=== PATIENT | female | born 1985 | race Caucasian/White ===

== ENCOUNTER 2017-10-02 11:33 | Emergency (ER) | payer OTHER, MEDICAID, SELFPAY ==
[2017-10-02 11:40] VITALS: BP 155/88; PULSE 87; RESP 20; TEMP 37; O2SAT 98; BMI 37.0
--- NOTE | 2017-10-02 11:45 | ED.ABDPAIN ---
HPI - Abdominal Pain General Chief Complaint: Abdominal Pain Stated Complaint: severe left side cramping Time Seen by Provider: 10/02/17 11:44 Source: patient Mode of arrival: ambulatory Limitations: no limitations History of Present Illness HPI narrative: 32-year-old female here for evaluation of left lower quadrants/ left adnexal pain. Patient states that started approximately 45 min prior to arrival. Has had some nausea but no vomiting. No vaginal bleeding. No urinary symptoms no bowel symptoms. She states she has had ovarian cysts in the past. Does have an IUD in place and has been there for many years. Does have occasional irregular vaginal bleeding but not having that now. states that the pain actually gets a little better when she places pressure over the area. Related Data Previous Rx's Medication Instructions Recorded fluoxetine 80 mg PO QDAY #60 cap 11/25/16 Allergies Allergy/AdvReac Type Severity Reaction Status Date / Time latex [LATEX] Allergy Intermediate Unverified 06/28/17 12:34 NSAIDS (Non-Steroidal Allergy Unknown TEARS MY Unverified 06/28/17 12:34 Anti-Inflamma STOMACH UP [NSAIDS (NON-STEROIDAL ANTI-INFLAMMA] Review of Systems Constitutional Denies chills, Denies fatigue and Denies fever(s) Cardiovascular Denies chest pain and Denies dyspnea Respiratory Denies dyspnea Gastrointestinal Gastrointestinal: Reports abdominal pain, Denies melena, Denies diarrhea, Reports nausea and Denies vomiting Genitourinary Denies dysuria, Denies urinary urgency and Denies vaginal discharge Musculoskeletal Denies myalgias and Denies arthralgias Integumentary/Breasts Denies lesions and Denies rash Neurologic Denies confusion Psychiatric Denies confusion Endocrine Denies fatigue Hematologic/Lymphatic Denies easy bleeding and Denies easy bruising [facility] Surgical History Status post delivery Social History Smoking Status: Never smoker Exam Initial Vital Signs Initial Vital Signs: Vital Signs Temperature 98.6 F 10/02/17 11:40 Pulse Rate 87 10/02/17 11:40 Respiratory Rate 20 10/02/17 11:40 Blood Pressure 155/88 H 10/02/17 11:40 Pulse Oximetry 98 10/02/17 11:40 Const General: cooperative, healthy appearing, comfortable, well developed, well groomed and No acute distress Orientation: alert, awake and oriented x3 Resp Effort & Inspection: normal respiratory effort Auscultation: clear to auscultation bilaterally Cardio Rate: regular rate Rhythm: regular rhythm GI Inspection: non-distended Palpation: soft, No firm and tender ( Left lower quadrant) Back/Spine/Pelvis Back: No CVA tenderness Skin Lesions: no lesions Rashes: no rashes Neuro General: alert and oriented x3 Cognition: normal cognition Speech: speech normal Gait: normal gait Extrem General: normal to inspection Psych Appearance: grossly normal and well kempt Course Orders Ordered: ED Orders 10/02/17 11:55 US pelvic complete Stat 10/02/17 11:58 Complete Blood Count AUTO DIFF Stat Comprehensive Metabolic Panel Stat Lipase Stat 10/02/17 13:19 CT kidney ureter bladder (KUB) Stat Discontinued Medications Morphine Sulfate (Morphine) 4 mg IV NOW ONE Stop: 10/02/17 11:56 Last Admin: 10/02/17 12:20 Dose: 4 mg Ondansetron HCl (Zofran) 4 mg IV NOW ONE Stop: 10/02/17 11:56 Last Admin: 10/02/17 12:20 Dose: 4 mg Vital Signs - 8 hr 10/02/17 11:40 10/02/17 13:38 Temperature 98.6 F Pulse Rate 87 82 Respiratory Rate 20 14 Blood Pressure 155/88 H Blood Pressure [Right Arm] 112/83 H Pulse Oximetry 98 98 MDM - Abdominal Pain Lab Data Attestation: I reviewed the patient's lab results. Result diagrams: 10/02/17 11:58 10/02/17 11:58 Lab Results 10/02/17 10/02/17 Range/Units 11:58 11:58 WBC 8.5 (4.5-11.0) X10^3/uL RBC 4.62 (4.0-5.2) X10^6/uL Hgb 13.0 (12.0-16.0) g/dL Hct 39.0 (36-46) % MCV 84.4 (80-100) fL MCH 28.3 (26-34) PG MCHC 33.5 (30-36) % RDW 13.0 (11.6-14.8) % Plt Count 286 (150-400) X10^3/uL Neut % (Auto) 59.2 (50-75) % Lymph % (Auto) 29.4 (25-40) % Emm[place] % (Auto) 9.5 (3-14) % Eos % (Auto) 1.3 L (2-4) % Baso % (Auto) 0.6 (0-2) % Neut # (Auto) 5000 (5484-9868) /uL Sodium 140 (137-145) mmol/L Potassium 4.4 (3.4-5.1) mmol/L Chloride 102 (98-107) mmol/L Carbon Dioxide 30 (22-32) mmol/L BUN 13 (7-17) mg/dL Creatinine 0.90 (0.52-1.04) mg/dL Estimated GFR > 60.0 (>60) mL/min BUN/Creatinine Ratio 14.4 (6-22) Glucose 100 (70-100) mg/dL Calcium 9.4 (8.4-10.2) mg/dL Total Bilirubin 0.2 (0.2-1.3) mg/dL AST 39 H (14-36) IU/L ALT 89 H (9-52) IU/L Alkaline Phosphatase 84 (38-126) U/L Total Protein 7.3 (6.3-8.2) g/dL Albumin 4.4 (3.5-5.0) g/dL Globulin 2.9 (1.7-4.1) g/dL Albumin/Globulin Ratio 1.5 (1.0-2.8) Lipase 87 (23-300) U/L Point of care testing: Point of Care Testing Test Results Negative Urine Dip Bedside Urine Glucose Negative Bedside Urine Bilirubin - Negative Bedside Urine Ketone - Negative Urine Specific [place] 1.015 Bedside Urine Occult Blood +++ Bedside Urine pH 6.0 Bedside Urine Protein - Negative Bedside Urine Urobilinogen - Negative Bedside Urine Nitrite - Negative Bedside Urine Leukocytes - Negative Esterase Imaging Data pelvic ultrasound: Radiologist's impression: PROCEDURE: US PELVIC COMPLETE INDICATIONS: PAIN TECHNIQUE: Real-time scanning was performed of the pelvic organs, with image documentation. Additional endovaginal scanning was necessary due to incomplete visualization of the adnexal and endometrial structures by transabdominal scanning. COMPARISON: [facility], US, PELVIC COMPLETE, 03/23/2015, 12:36. FINDINGS: Transabdominal scanning: Limited scanning through the kidneys shows no hydronephrosis. The kidneys measure 11.7 CM right and 11.9 CM left. No pathologic free abdominal or pelvic fluid. Endovaginal scanning: Uterus: Uterus is normal in size at 3.7 x 4.9 x 7.4 cm. The endometrium measures 3.5 mm in combined thickness. An IUD is present in the lower uterine segment. There is a persistent 5 mm linear hyperechoic focus in the posterior submucosal myometrium that is of concern for possible embedded IUD fragment. Ovaries: Ovaries appear normal measuring 20 x 22 x 34 mm right and 18 x 20 x 27 mm left. IMPRESSION: 1. There is suspicion of a broken IUD fragment in the posterior submucosal myometrium. Pelvic x-ray may be helpful for verification. CT of the pelvis should be deferred because of radiation exposure unless surgically necessary. 2. Main portion of the IUD is in the lower uterine segment of the endometrium 3. Normal ovaries. Dictated by: Mike Shrestha M.D. on 10/02/2017 at 12:59 Approved by: Mike Shrestha M.D. on 10/02/2017 at 13:06 CT scan abdomen pelvis: Radiologist's impression: PROCEDURE: CT KIDNEY URETER BLADDER (KUB) INDICATIONS: Possible broken IUD left-sided abdominal pain TECHNIQUE: Noncontrast 5 mm thick sections acquired from the diaphragms to the symphysis. 5 mm thick coronal and sagittal reformats were then performed. For radiation dose reduction, the following was used: automated exposure control, adjustment of mA and/or kV according to patient size. COMPARISON: [facility], , PELVIC COMPLETE, 10/02/2017, 12:23. FINDINGS: Image quality: Excellent. Lung bases: Lung bases are clear. Heart size is normal. Urinary system: Both kidneys are normal in size. No kidney stones. No hydronephrosis or perinephric fat stranding. Both ureters appear non-dilated throughout their expected courses. Bladder wall thickness is normal; no calcified bladder stones. Other solid organs: Liver is normal in size, mildly hypoattenuating except for sparing around the gallbladder fossa. Gallbladder appears normal. Pancreas is normal in contours. Spleen is normal in size. No adrenal nodules. Peritoneum and bowel: Unenhanced bowel loops demonstrate normal wall thickness and caliber. Normal appendix. No free fluid or air. Nodes and vessels: No retroperitoneal or mesenteric adenopathy by size criteria. Aorta and inferior vena cava are normal in caliber. Abdominal wall: A 2.5 cm fat filled. Inguinal hernia is superimposed on rectus diastasis. Pelvis: No free pelvic fluid. No inguinal hernias or adenopathy. Uterus and ovaries appear normal. There is an IUD in the lower uterine segment of the endometrial cavity. Relative to the prior pelvic ultrasound, the IUD appears to be intact. There is no radiopaque foreign body seen elsewhere in the uterus. Calcified injection site in the right buttocks. Bones: No suspicious bony lesions. No vertebral body compression fractures. IMPRESSION: 1. The IUD is intact but is low in the uterus. 2. No nephrolithiasis or hydronephrosis. 3. No evidence of inflammatory bowel disease or obstruction. 4. Mild hepatic steatosis with sparing around the gallbladder fossa. 5. Fat filled umbilical hernia with diastases of the rectus abdominis. Dictated by: Mike Shrestha M.D. on 10/02/2017 at 14:03 Approved by: Mike Shrestha M.D. on 10/02/2017 at 14:13 [facility] Narrative Medical decision making narrative: patient with a relatively benign abdominal exam. Ovaries unremarkable. CT scan shows that the IUD is intact. No other surgical abnormalities found on the CT scan. Patient does state that she has a distant diagnosis of endometriosis however has not had any issues with it. We did discuss pain control to include Tylenol and Motrin. We discussed return precautions. She expressed understanding and agreement with plan. Discharge Plan Departure Patient Disposition: Home, Self-Care Clinical Impression: Abdominal pain Instructions: DI for Abdominal Pain-Adult Activity Restrictions/Additional Instructions: recommend that you continue all of your medications as directed. Keep all of your scheduled medical appointments. Return to the emergency department for any new or worsening symptoms Prescriptions: No Action fluoxetine 40 MG capsule 80 mg PO QDAY Qty: 60 RF: 0
--- NOTE | 2017-10-02 11:55 | DI.US.S_ITS ---
PROCEDURE: US PELVIC COMPLETE INDICATIONS: PAIN TECHNIQUE: Real-time scanning was performed of the pelvic organs, with image documentation. Additional endovaginal scanning was necessary due to incomplete visualization of the adnexal and endometrial structures by transabdominal scanning. COMPARISON: [facility], , PELVIC COMPLETE, 03/23/2015, 12:36. FINDINGS: Transabdominal scanning: Limited scanning through the kidneys shows no hydronephrosis. The kidneys measure 11.7 CM right and 11.9 CM left. No pathologic free abdominal or pelvic fluid. Endovaginal scanning: Uterus: Uterus is normal in size at 3.7 x 4.9 x 7.4 cm. The endometrium measures 3.5 mm in combined thickness. An IUD is present in the lower uterine segment. There is a persistent 5 mm linear hyperechoic focus in the posterior submucosal myometrium that is of concern for possible embedded IUD fragment. Ovaries: Ovaries appear normal measuring 20 x 22 x 34 mm right and 18 x 20 x 27 mm left. IMPRESSION: 1. There is suspicion of a broken IUD fragment in the posterior submucosal myometrium. Pelvic x-ray may be helpful for verification. CT of the pelvis should be deferred because of radiation exposure unless surgically necessary. 2. Main portion of the IUD is in the lower uterine segment of the endometrium 3. Normal ovaries. Dictated by: Mike Shrestha M.D. on 10/02/2017 at 12:59 Approved by: Mike Shrestha M.D. on 10/02/2017 at 13:06
[2017-10-02 12:08] LABS: Add Manual Diff / Slide Review NO; Basophils Percent Auto 0.6 % (0-2); Eosinophils Percent Auto 1.3 % (2-4); Lymphocytes Percent Auto 29.4 % (25-40); Mean Corpuscular HGB Conc 33.5 % (30-36); Mean Corpuscular Hemoglobin 28.3 PG (26-34); Mean Corpuscular Volume 84.4 fL (80-100); Monocytes Percent Auto 9.5 % (3-14); Neutrophils Absolute Auto 5000 /uL (3000-5900); Neutrophils Percent Auto 59.2 % (50-75); Platelet Count 286 X10^3/uL (150-400); Red Blood Cell Count 4.62 X10^6/uL (4.0-5.2); White Blood Cell Count 8.5 X10^3/uL (4.5-11.0)
[2017-10-02] MEDS: MORPHINE 4 MG/ML INJ IV (12:20)
[2017-10-02] MEDS: ONDANSETRON 4 MG/2 ML INJ IV (12:20)
[2017-10-02 12:22] LABS: Alanine Aminotransferase 89 IU/L (9-52); Albumin 4.4 g/dL (3.5-5.0); Albumin Globulin Ratio 1.5 (1.0-2.8); Alkaline Phosphatase 84 U/L (38-126); Aspartate Aminotransferase 39 IU/L (14-36); BUN Creatinine Ratio 14.4 (6-22); Bilirubin Total 0.2 mg/dL (0.2-1.3); Blood Urea Nitrogen 13 mg/dL (7-17); Calcium 9.4 mg/dL (8.4-10.2); Carbon Dioxide 30 mmol/L (22-32); Chloride 102 mmol/L (98-107); Estimated Glomerular Filt Rate > 60.0 mL/min (>60); Globulin 2.9 g/dL (1.7-4.1); Glucose 100 mg/dL (70-100); HEMOLYSIS < 15 (0-50); Lipase 87 U/L (23-300); Potassium 4.4 mmol/L (3.4-5.1); Sodium 140 mmol/L (137-145); Total Protein 7.3 g/dL (6.3-8.2)
--- NOTE | 2017-10-02 13:19 | DI.CT.S_ITS ---
PROCEDURE: CT KIDNEY URETER BLADDER (KUB) INDICATIONS: Possible broken IUD left-sided abdominal pain TECHNIQUE: Noncontrast 5 mm thick sections acquired from the diaphragms to the symphysis. 5 mm thick coronal and sagittal reformats were then performed. For radiation dose reduction, the following was used: automated exposure control, adjustment of mA and/or kV according to patient size. COMPARISON: [facility], , PELVIC COMPLETE, 10/02/2017, 12:23. FINDINGS: Image quality: Excellent. Lung bases: Lung bases are clear. Heart size is normal. Urinary system: Both kidneys are normal in size. No kidney stones. No hydronephrosis or perinephric fat stranding. Both ureters appear non-dilated throughout their expected courses. Bladder wall thickness is normal; no calcified bladder stones. Other solid organs: Liver is normal in size, mildly hypoattenuating except for sparing around the gallbladder fossa. Gallbladder appears normal. Pancreas is normal in contours. Spleen is normal in size. No adrenal nodules. Peritoneum and bowel: Unenhanced bowel loops demonstrate normal wall thickness and caliber. Normal appendix. No free fluid or air. Nodes and vessels: No retroperitoneal or mesenteric adenopathy by size criteria. Aorta and inferior vena cava are normal in caliber. Abdominal wall: A 2.5 cm fat filled. Inguinal hernia is superimposed on rectus diastasis. Pelvis: No free pelvic fluid. No inguinal hernias or adenopathy. Uterus and ovaries appear normal. There is an IUD in the lower uterine segment of the endometrial cavity. Relative to the prior pelvic ultrasound, the IUD appears to be intact. There is no radiopaque foreign body seen elsewhere in the uterus. Calcified injection site in the right buttocks. Bones: No suspicious bony lesions. No vertebral body compression fractures. IMPRESSION: 1. The IUD is intact but is low in the uterus. 2. No nephrolithiasis or hydronephrosis. 3. No evidence of inflammatory bowel disease or obstruction. 4. Mild hepatic steatosis with sparing around the gallbladder fossa. 5. Fat filled umbilical hernia with diastases of the rectus abdominis. Dictated by: Mike Shrestha M.D. on 10/02/2017 at 14:03 Approved by: Mike Shrestha M.D. on 10/02/2017 at 14:13
[2017-10-02 13:38] VITALS: BP 112/83; PULSE 82; RESP 14; O2SAT 98
== END 2017-10-02 14:38 | disposition home or self-care (01) ==
PROVIDERS: Emergency Provider Emergency Medicine; Family Provider Family Medicine; PCP Family Medicine
DX: R10.9 Unspecified abdominal pain (principal)
CPT/HCPCS: 36415; 74176; 76856; 80053; 81003; 81025; 83690; 85025; 96374; 96375; 99282; 99284; J2270; J2405

== ENCOUNTER → 2017-10-04 12:28 | Outpatient (CLI) | payer OTHER, MEDICAID, SELFPAY ==
[2017-10-04 17:19] LABS: Urine N gonorrhoeae NOT DETECTED
[2017-10-04 17:27] LABS: Urine Chlamydia NOT DETECTED
== END ==
PROVIDERS: Family Provider Family Medicine; PCP Family Medicine; Visit Provider Family Medicine
DX: Z30.433 Encounter for removal and reinsertion of intrauterine contraceptive device (principal)
CPT/HCPCS: 87491; 87591

== ENCOUNTER → 2017-11-30 14:00 | Outpatient (CLI) | payer OTHER, MEDICAID, SELFPAY | PROVIDERS: Family Provider Family Medicine; PCP Family Medicine | DX: Z23 Encounter for immunization (principal) | CPT/HCPCS: 90471; 90686 ==

== ENCOUNTER → 2018-10-12 11:58 | Outpatient (CLI) | payer OTHER, MEDICAID, SELFPAY ==
--- NOTE | 2018-10-12 12:03 | DI.US.S_ITS ---
PROCEDURE: US ABDOMEN COMPLETE INDICATIONS: PERIMBILICAL PAIN TECHNIQUE: Real-time scanning was performed of the abdominal and retroperitoneal organs, with image documentation. COMPARISON: [facility], CT, CT KIDNEY URETER BLADDER (KUB), 10/02/2017, 13:36. FINDINGS: Liver: Liver is normal in size and homogeneous in echotexture. Gallbladder: The gallbladder appears normal. Biliary ducts: Intrahepatic bile ducts are non-dilated. Extrahepatic bile duct caliber measures 3.0 mm. Normal is 6-7 mm or less in diameter, or 10 mm or less post-cholecystectomy. Pancreas: Visualized portions of the pancreas are sonographically normal. Spleen: Spleen is normal in size and homogeneous in echotexture. Kidneys: Kidneys are normal in size and echotexture. Right kidney measures 10.8 cm long; left kidney measures 11.2 cm long. No hydronephrosis or nephrolithiasis. No solid masses. Aorta: Visualized aorta is normal in caliber at less than 3 cm. Iliacs: Proximal common iliac arteries are normal in caliber at less than 2.5 cm. IVC: Intrahepatic inferior vena cava is patent. Miscellaneous: No free abdominal fluid. There is a fat containing umbilical hernia seen, without associated inflammation. By appearance this is likely long-standing. IMPRESSION: There is a small fat containing noninflamed midline periumbilical hernia, and this same area was well-visualized on CT scanning 10/02/17. Its current incarceration or strangulation is clinically suspected followup by repeat CT scanning with reference to the one year ago study may be warranted. Dictated by: Sánchez Turcios M.D. on 10/12/2018 at 13:19 Approved by: Sánchez Turcios M.D. on 10/12/2018 at 13:22
== END ==
PROVIDERS: Family Provider Family Medicine; PCP Family Medicine; Visit Provider Registered Nurse
DX: K42.9 Umbilical hernia without obstruction or gangrene (principal); R10.33 Periumbilical pain
CPT/HCPCS: 76700

== ENCOUNTER 2018-11-15 18:55 | Emergency (ER) | payer OTHER, MEDICAID, SELFPAY ==
[2018-11-15 19:13] VITALS: BP 132/90; PULSE 84; RESP 14; TEMP 36.6; O2SAT 98; BMI 40.4
--- NOTE | 2018-11-15 19:15 | DI.RAD.S_ITS ---
PROCEDURE: XR KNEE RT 3V INDICATIONS: twisted ankle,fell onto knee TECHNIQUE: 3 views of the knee were acquired. COMPARISON: None. FINDINGS: Bones: No fractures or dislocations. No suspicious bony lesions. Soft tissues: No joint effusion. No suspicious soft tissue calcifications. IMPRESSION: No acute radiographic findings. If pain persists, repeat study in 5-7 days is recommended to exclude occult fracture. Dictated by: Florencia Melvin M.D. on 11/15/2018 at 19:50 Approved by: Florencia Melvin M.D. on 11/15/2018 at 19:50
--- NOTE | 2018-11-15 19:15 | DI.RAD.S_ITS ---
PROCEDURE: XR ANKLE RT MIN 3V INDICATIONS: twisted ankle,fell onto knee TECHNIQUE: 3 views of the ankle were acquired. COMPARISON: None. FINDINGS: Bones: No fractures or dislocations. Ankle mortise is normally aligned. No suspicious bony lesions. Soft tissues: No tibiotalar joint effusion. Achilles tendon appears normal. IMPRESSION: No acute radiographic findings. If pain persists, repeat study in 5-7 days is recommended to exclude occult fracture. Dictated by: Florencia Melvin M.D. on 11/15/2018 at 19:49 Approved by: Florencia Melvin M.D. on 11/15/2018 at 19:50
--- NOTE | 2018-11-15 20:34 | ED.LOWEXIN ---
HPI - Extremity Injury (Lower) <Damien Buckley [facility] - Last Filed: 11/15/18 23:56> General Chief Complaint: Extremity Injury, Lower Stated Complaint: fall down stairs, right knee and ankle pain Time Seen by Provider: 11/15/18 20:26 Source: patient Mode of arrival: ambulatory Limitations: no limitations History of Present Illness HPI Narrative: This is a 33-year-old female, previous smoker, who presents with family member with right ankle and knee pain. Patient reports she inverted her right ankle while coming down on stairs and fell about 4 steps and landed on her right knee when she was about to leave work. Patient denies injuring her head, neck, or other areas. Patient reports right medial ankle when she rotates or move the affected ankle. Patient is able to bear weight partially but painful. She denies tingling or numbness to her lower limb states sensation is intact. Related Data Home Medications Medication Instructions Recorded Confirmed levonorgestrel 20 mcg/24 hours (5 INTRAUTERINE each 12/05/17 11/09/18 yrs) 52 mg intrauterine device Previous Rx's Medication Instructions Recorded citalopram 20 mg tablet 20 mg PO DAILY #90 tab 11/09/18 Allergies Allergy/AdvReac Type Severity Reaction Status Date / Time latex [LATEX] Allergy Intermediate Verified 11/15/18 19:13 NSAIDS (Non-Steroidal Allergy Unknown TEARS MY Verified 11/15/18 19:13 Anti-Inflamma STOMACH UP [NSAIDS (NON-STEROIDAL ANTI-INFLAMMA] Review of Systems <Damien Buckley [facility] - Last Filed: 11/15/18 23:56> Review of Systems Narrative: General: Denies fever, chills, fatigue, malaise, sweats. HEENT: Denies sinus pain, ear pain, sore throat, difficulty swallowing, dizziness. Respiratory: Denies dyspnea, cough, wheezing, hemoptysis, sputum. Cardiovascular: Denies chest pain, palpitations, orthopnea, edema. Gastrointestinal: Denies nausea, vomiting, abdominal pain, diarrhea, constipation, melena. : Denies dysuria, frequency, incontinence, hematuria, urinary retention. Musculoskeletal: See HPI Skin: Denies rash, skin lesions, or other. Neurologic: Denies weakness, headache, numbness, change in speech, confusion, seizures, incoordination. Psychiatric: No concerning psychosocial issues. 12-point review of systems is negative except for those stated above. PFSH <DIMITRIS Blas - Last Filed: 11/15/18 23:56> Medical History Anxiety (Chronic ~2006) Chicken pox (Resolved) Collapsed lung (Chronic ~2013) Depression (Chronic ~2006) Endometriosis (Chronic ~1999) Heavy menstrual period (Chronic ~2013) Hypothyroidism (Chronic ~2013) Irregular menstrual cycle (Chronic ~1999) Ovarian cyst (Chronic ~1999) Painful menstrual periods (Chronic ~1999) Post traumatic stress disorder (PTSD) (Chronic ~2015) Seasonal allergies (Chronic ~2013) Shoulder pain (Chronic ~2008) Snoring (Chronic) Vision disorder (Chronic) Surgical History Anesthesia (Resolved) Ganglion cyst (Resolved ~2015) History of shoulder surgery (Resolved) Status post delivery (~2013) Social History Smoking Status: Former smoker Social History Smoking Status: Former smoker Exam <DIMITRIS Blas - Last Filed: 11/15/18 23:56> Narrative Exam Narrative: General appearance: well developed, well nourished, in no acute distress. Head: normocephalic, atraumatic, no scalp lesions, non-tender. Eye: pupil equal, round. EOMI. Nose: nares patent. Oral: mucosa moist. Neck/Thyroid: neck supple, full range of motion, no visible masses. Skin: Superficial abrasion on right knee. no suspicious rashes, lesions over visible areas. Warm and dry. Heart: no clubbing, no cyanosis, no edema. Lungs: Breathing even and unlabored. No stridor. No accessory muscles used. Chest: normal shape and expansion. Abdomen: non-obese, non-distended. Neurologic: alert and oriented. Cognitive exam, [employer] and PNS grossly intact on informal exam. Psych: good eye contact, normal affect. Initial Vital Signs Initial Vital Signs: Vital Signs Temperature 97.9 F 11/15/18 19:13 Pulse Rate 84 11/15/18 19:13 Respiratory Rate 14 11/15/18 19:13 Blood Pressure 132/90 11/15/18 19:13 Pulse Oximetry 98 11/15/18 19:13 Extrem Right upper extremity: normal to inspection and full ROM Left upper extremity: normal to inspection and full ROM Right lower extremity: knee Details: normal to inspection, tenderness, abnormal ROM Details: pain with active ROM during Details: in extension and in flexion and abrasion; no deformity, ankle Details: tenderness Location: of the medial malleolus and abnormal ROM Details: pain with active ROM and foot Details: vascular exam Details: dorsalis pedis pulse present and posterior tibial pulse present Left lower extremity: normal to inspection and full ROM <DO Lonnie Mora Last Filed: 11/16/18 02:09> Initial Vital Signs Initial Vital Signs: Vital Signs Temperature 97.9 F 11/15/18 19:13 Pulse Rate 84 11/15/18 19:13 Respiratory Rate 14 11/15/18 19:13 Blood Pressure 132/90 11/15/18 19:13 Pulse Oximetry 98 11/15/18 19:13 Procedures <DIMITRIS Blas - Last Filed: 11/15/18 23:56> Orthopedic Splinting/Casting Injury #1: Side: right Lower Extremity Injury Location: ankle Lower Extremity Immobilizer: AirCast and Prashanth wrap Post splinting neuro exam: intact Post splinting vascular exam: intact Placed by: Nursing Course <DIMITRIS Blas - Last Filed: 11/15/18 23:56> Orders Ordered: ED Orders 11/15/18 19:15 XR ankle RT min 3V Stat XR knee RT 3V Stat Vital Signs Vital signs: Vital Signs - 8 hr 11/15/18 19:13 11/15/18 21:11 Temperature 97.9 F Pulse Rate 84 84 Respiratory Rate 14 19 Blood Pressure 132/90 Blood Pressure [Right Arm] 131/89 Pulse Oximetry 98 97 <La Najera DO - Last Filed: 11/16/18 02:09> Orders Ordered: ED Orders 11/15/18 19:15 XR ankle RT min 3V Stat XR knee RT 3V Stat Vital Signs Vital signs: Vital Signs - 8 hr 11/15/18 19:13 11/15/18 21:11 Temperature 97.9 F Pulse Rate 84 84 Respiratory Rate 14 19 Blood Pressure 132/90 Blood Pressure [Right Arm] 131/89 Pulse Oximetry 98 97 MDM - Extremity Injury (Lower) <DIMITRIS Blas - Last Filed: 11/15/18 23:56> Differential Diagnosis Differential diagnosis: Likely ankle sprain and strain, ankle fracture and other (Knee sprain) Medical Records Attestation: I reviewed the patient's medical records. Imaging Data XR-Knee RT: Radiologist's impression: [address] [address] XRay Report Signed Patient: Tomasa Unger LMR#: [id number] : 1985Acct:[id number] Age/Sex: 33 / FDate of Service: 11/15/18 Loc: ED Accession Number: [id number] Procedure: XR knee RT 3V Ordering Provider: La Najera D.O. PROCEDURE: XR KNEE RT 3V INDICATIONS: twisted ankle,fell onto knee TECHNIQUE: 3 views of the knee were acquired. COMPARISON: None. FINDINGS: Bones: No fractures or dislocations. No suspicious bony lesions. Soft tissues: No joint effusion. No suspicious soft tissue calcifications. IMPRESSION: No acute radiographic findings. If pain persists, repeat study in 5-7 days is recommended to exclude occult fracture. Dictated by: Florencia Melvin M.D. on 11/15/2018 at 19:50 Approved by: Florencia Melvin M.D. on 11/15/2018 at 19:50 XR-Ankle RT: Radiologist's impression: [address] [address] XRay Report Signed Patient: Tomasa Unger LMR#: [id number] : 1985Acct:[id number] Age/Sex: 33 / FDate of Service: 11/15/18 Loc: ED Accession Number: [id number] Procedure: XR ankle RT min 3V Ordering Provider: La Najera D.O. PROCEDURE: XR ANKLE RT MIN 3V INDICATIONS: twisted ankle,fell onto knee TECHNIQUE: 3 views of the ankle were acquired. COMPARISON: None. FINDINGS: Bones: No fractures or dislocations. Ankle mortise is normally aligned. No suspicious bony lesions. Soft tissues: No tibiotalar joint effusion. Achilles tendon appears normal. IMPRESSION: No acute radiographic findings. If pain persists, repeat study in 5-7 days is recommended to exclude occult fracture. Dictated by: Florencia Melvin M.D. on 11/15/2018 at 19:49 Approved by: Florencia Melvin M.D. on 11/15/2018 at 19:50 [facility] Narrative Medical decision making narrative: This is a 33-year-old female complaining of right medial ankle and knee pain after she sustained a fall on stairs at work. Patient had inverted her right foot and fell for steps down without injuring other areas. X-ray was obtained and noted no acute findings such as fractures or dislocation on right ankle and knee. Patient advised RICE therapy and to take [id number] Tylenol and/or Motrin as needed for discomfort and inflammation. Patient had placed on Prashanth wrap and Aircast for comfort. L&I documentation has completed for this. Patient advised to follow with primary care physician and if the pain persists then repeated in imaging test or further evaluation. Patient verbalized the understanding and agrees with treatment plan. No further questions were expressed at this time. Discharge Plan Departure Patient Disposition: Home Clinical Impression: Sprain of knee Qualifiers: Encounter type: initial encounter Involved ligament of knee: unspecified ligament Laterality: right Qualified Code(s): S83.91XA - Sprain of unspecified site of right knee, initial encounter Ankle sprain Qualifiers: Encounter type: initial encounter Involved ligament of ankle: unspecified ligament Laterality: right Qualified Code(s): S93.401A - Sprain of unspecified ligament of right ankle, initial encounter Discharge Date/Time: 11/15/18 21:19 Instructions: DI for Knee Sprain, DI for Ankle Sprain Activity Restrictions/Additional Instructions: You have been diagnosed with [sprain in you're ankle and knee on the right leg. According to the x-rays, there is no acute fracture or dislocation on your ankle and knee. However, if pain persists after seven to ten days, your doctor may consider repeating x-ray test again.]. What to do: *Please use ?RICE? therapy such as Rest, Ice, Compression/Spliint/Acewra, and Elevation above the chest level. Ice the area for next 24-48 hrs after the initial injury. Please try to avoid getting swelling to the affected site since this may cause increasing pain. You could use OTC Tylenol and or Ibuprofen as needed for pain. Please monitor for increasing pain, swelling, tingling/numbness, unable to move affected/below the injury site, cool limbs. *Follow up with your primary care provider in 2-3 days, call for an appointment. Let them know you were seen in the ED and that we asked you to be seen in follow up. Please return to ED with signs and symptoms as above, chest pain, breathing difficulty, unable to tolerate fluids, or any acute concerns Prescriptions: No Action citalopram 20 mg tablet 20 mg PO DAILY Qty: 90 RF: 0 levonorgestrel [Mirena] 20 mcg/24 hr (5 years) intrauterine device Intrauterine RF: 0 Referrals: Nereida Swain DO [Primary Care Provider] -
[2018-11-15 21:11] VITALS: BP 131/89; PULSE 84; RESP 19; O2SAT 97
== END 2018-11-15 21:19 | disposition home or self-care (01) ==
PROVIDERS: Emergency Provider Nurse Practitioner Family; Family Provider Family Medicine; PCP Family Medicine
DX: S83.91XA Sprain of unspecified site of right knee, initial encounter (principal); S93.401A Sprain of unspecified ligament of right ankle, initial encounter; W10.9XXA Fall (on) (from) unspecified stairs and steps, initial encounter; Y99.0 Civilian activity done for income or pay
CPT/HCPCS: 29540; 73562; 73610; 99282; 99283

== ENCOUNTER 2018-12-03 11:26 | Day surgery (SDC) | payer OTHER, MEDICAID, SELFPAY ==
[2018-11-30 07:43] VITALS: BMI 42.3
[2018-12-03] MEDS: LACTATED RINGERS 1,000 ML 100 ML IV (12:03)
[2018-12-03 12:05] VITALS: BP 137/85; PULSE 94; RESP 16; TEMP 36.6; O2SAT 98; BMI 41.8
--- NOTE | 2018-12-03 13:30 | PM.PREOP ---
Pre-operative Note Interval Note History & Physical reviewed/Exam performed by Physician: Yes Changes to H&P: No
[2018-12-03] MEDS: CEFAZOLIN 2 GM/100 ML FROZ.PIGGY IV (13:35)
--- NOTE | 2018-12-03 13:56 | SUR.OPER ---
Supine on padded OR bed, head on pillow, arms secured on padded arm boards at <90 degrees abduction, legs uncrossed, safety belt at thigh, tape over blanket over lower legs.
[2018-12-03] MEDS: BUPIVACAINE 0.5% (PF) VIAL 30 ML INJ (14:01)
[2018-12-03 14:37] VITALS: BP 136/87; PULSE 99; RESP 12; TEMP 36.6; O2SAT 98
[2018-12-03 14:44] VITALS: BP 111/74; PULSE 82; RESP 12; O2SAT 99
--- NOTE | 2018-12-03 14:47 | PM.OP.1 ---
Operative Date/Time/Diagnoses Date of procedure: 12/03/18 Time of procedure: 14:48 Pre-op diagnosis: Umbilical hernia reducible Post-op diagnosis: same Procedure & Clinicians Procedure: Repair with underlay of mesh Same procedure as scheduled: Yes Indications: Symptomatic umbilical hernia with attenuated skin/ulcer over the skin Surgeon: Jack Fabian Click Yes if Unassisted: Yes Anesthesia Type: General Operative Notes Findings: Fat containing umbilical hernia Closure Type: primary Specimen(s): none sent Prosthetic devices, grafts, tissues, transplants, or devices: 1.7 in diameter mesh placed under the fascia and outside the peritoneum in the preperitoneal space Estimated Blood Loss (mL): 10 Blood products transfused: none Procedure in detail: Patient was placed supine on the operating table and underwent general LMA anesthesia. She was prepped and draped in the usual fashion. Curvilinear incision was made underlying the umbilicus and also across the umbilicus to include a small ulcer in the skin. This wedge of tissue in the skin was removed. Dissection was carried down level of fascia. The fascia was cleared circumferentially and the sac entered and removed. The contents were preperitoneal fat knees were reduced. The fascial edge was cleared. The tissue was dissected from under the fascial edge back to a point where I could place mesh under it. A 1.7 in diameter piece of mesh with tails was placed under the fascia and the tails were incorporated into the fascial closure. This was accomplished with 0 Ethibond suture. The umbilicus was tacked down to the fascia and the subcu was closed with 3 0 Vicryl. The skin was closed with interrupted 4 0 Vicryl subcuticular stitches and Steri-Strips. Dressing was applied the patient was awakened taken recovery room good condition Complications: none Post-operative Condition: stable Disposition: PACU
[2018-12-03 14:50] VITALS: BP 123/71; PULSE 82; RESP 10; O2SAT 99
[2018-12-03 14:57] VITALS: BP 112/70; PULSE 83; RESP 12; TEMP 36.4; O2SAT 100
[2018-12-03 15:00] VITALS: BP 112/70; PULSE 76; RESP 16; TEMP 36.8; O2SAT 99
== END 2018-12-03 15:25 | disposition home or self-care (01) ==
PROVIDERS: PCP Family Medicine; Visit Provider Specialist
PROC: (CPT 49585; principal; 2018-12-03 12:45)
DX: K42.0 Umbilical hernia with obstruction, without gangrene (principal)
CPT/HCPCS: 49585; C1781; J0690; J1100; J2405; J2704; J3010

== ENCOUNTER → 2018-12-18 08:16 | Outpatient (CLI) | payer OTHER, MEDICAID, SELFPAY | PROVIDERS: PCP Family Medicine | DX: Z23 Encounter for immunization (principal) | CPT/HCPCS: 90471; 90686 ==

== ENCOUNTER → 2019-04-10 12:56 | Outpatient (CLI) | payer OTHER, MEDICAID, SELFPAY ==
--- NOTE | 2019-04-10 12:58 | DI.US.S_ITS ---
PROCEDURE: US PELVIC COMPLETE INDICATIONS: PAIN TECHNIQUE: Real-time scanning was performed of the pelvic organs, with image documentation. Additional endovaginal scanning was necessary due to incomplete visualization of the adnexal and endometrial structures by transabdominal scanning. COMPARISON: [facility], , US PELVIC COMPLETE, 10/02/2017, 12:23. FINDINGS: Transabdominal scanning: Limited scanning through the kidneys shows no hydronephrosis. No pathologic free abdominal or pelvic fluid. Endovaginal scanning: Uterus: Uterus is normal in size at 7.6 x 3.9 x 4.9 cm. The endometrium measures 4 mm in combined thickness. An IUD is seen at its expected location. Ovaries: The right ovary measures 3.5 x 2.4 x 2.7 cm. The left ovary measures 3.1 x 1.8 x 1.9 cm. The ovaries have a normal sonographic appearance. No adnexal masses are seen. IMPRESSION: Normal ultrasound, with the IUD seen at its expected location. Dictated by: Jason Velez M.D. on 04/10/2019 at 12:51 Approved by: Jason Velez M.D. on 04/10/2019 at 12:52
== END ==
PROVIDERS: PCP Family Medicine; Visit Provider Family Medicine
DX: R10.2 Pelvic and perineal pain (principal); Z97.5 Presence of (intrauterine) contraceptive device
CPT/HCPCS: 76856

== ENCOUNTER → 2019-09-24 08:24 | Outpatient (CLI) | payer OTHER, MEDICAID, SELFPAY ==
--- NOTE | 2019-09-24 08:26 | DI.RAD.S_ITS ---
PROCEDURE: XR RIBS LT MIN 3V W CXR1V INDICATIONS: L anterior/lateral rib pain, clinical concern for fx TECHNIQUE: 2 views of the left ribs were acquired, along with a single view chest. COMPARISON: [facility], , CHEST 2 VIEW, 01/25/2017, 14:38. FINDINGS: Surgical changes and devices: None. Bones and chest wall: A marker is placed upon the area of clinical concern. Within this region, no displaced rib fracture or other significant rib abnormality can be seen. No rib fractures are seen elsewhere. No suspicious bony lesions. Overlying soft tissues appear unremarkable. Lungs and pleura: No pleural effusions or pneumothorax. Lungs appear clear. Mediastinum: Mediastinal contours appear normal. Heart size is normal. IMPRESSION: Negative for rib fracture or pneumothorax. Dictated by: Jason Velez M.D. on 09/24/2019 at 8:13 Approved by: Jason Velez M.D. on 09/24/2019 at 8:15
== END ==
PROVIDERS: PCP Family Medicine; Referring Provider Physician Assistant; Visit Provider Physician Assistant
DX: R07.81 Pleurodynia (principal)
CPT/HCPCS: 71101

== ENCOUNTER → 2019-12-03 08:07 | Outpatient (CLI) | payer OTHER, MEDICAID, SELFPAY ==
[2019-12-03 09:19] LABS: Add Manual Diff / Slide Review NO; Basophils Absolute Auto 0 /uL (0-100); Basophils Percent Auto 0.5 % (0-2); Eosinophils Absolute Auto 100 /uL (0-450); Eosinophils Percent Auto 1.6 % (2-4); Hematocrit 41.6 % (36-46); Hemoglobin 13.4 g/dL (12.0-16.0); Lymphocytes Absolute Auto 2000 /uL (1100-4500); Lymphocytes Percent Auto 25.3 % (25-40); Mean Corpuscular HGB Conc 32.3 % (30-36); Mean Corpuscular Volume 86.5 fL (80-100); Monocytes Absolute Auto 700 /uL (0-900); Monocytes Percent Auto 9.3 % (3-14); Neutrophils Absolute Auto 5000 /uL (1500-7000); Neutrophils Percent Auto 63.3 % (50-75); Platelet Count 297 X10^3/uL (150-400); Red Cell Distribution Width 12.9 % (11.6-14.8); White Blood Cell Count 7.8 X10^3/uL (4.5-11.0)
[2019-12-03 09:32] LABS: Alanine Aminotransferase 123 IU/L (<35); Albumin 4.3 g/dL (3.5-5.0); Albumin Globulin Ratio 1.4 (1.0-2.8); Alkaline Phosphatase 86 U/L (38-126); Aspartate Aminotransferase 60 IU/L (14-36); BUN Creatinine Ratio 15.7 (6-22); Bilirubin Total 0.4 mg/dL (0.2-1.3); Blood Urea Nitrogen 13 mg/dL (7-17); Calcium 9.5 mg/dL (8.4-10.2); Carbon Dioxide 29 mmol/L (22-32); Chloride 104 mmol/L (98-107); Cholesterol 201 mg/dL (140-199); Estimated Glomerular Filt Rate > 60.0 mL/min (>60); Glucose 117 mg/dL (70-100); HDL Cholesterol 57 mg/dL (40-60); HEMOLYSIS < 15 (0-50); LDL Cholesterol Calculated 117 mg/dL (<100); Sodium 140 mmol/L (137-145); Total Protein 7.3 g/dL (6.3-8.2); Triglycerides 137 mg/dL (35-150)
[2019-12-03 10:00] LABS: TSH w/ Reflex to FT4 4.54 uIU/mL (0.47-4.68)
[2019-12-04 07:56] LABS: Hepatitis B Surf Ab Qualitativ Reactive (.)
== END ==
PROVIDERS: PCP Family Medicine; Referring Provider Family Medicine; Visit Provider Family Medicine
DX: E66.01 Morbid (severe) obesity due to excess calories (principal); Z68.41 Body mass index [BMI] 40.0-44.9, adult; Z01.84 Encounter for antibody response examination
CPT/HCPCS: 36415; 80053; 80061; 84443; 85025; 86706

== ENCOUNTER → 2019-12-06 11:04 | Outpatient (CLI) | payer OTHER, MEDICAID, SELFPAY ==
[2019-12-06 12:15] LABS: Blood Urea Nitrogen 13 mg/dL (7-17); Calcium 9.6 mg/dL (8.4-10.2); Carbon Dioxide 31 mmol/L (22-32); Chloride 99 mmol/L (98-107); Estimated Glomerular Filt Rate > 60.0 mL/min (>60); Glucose 100 mg/dL (70-100); HEMOLYSIS < 15 (0-50); Potassium 4.9 mmol/L (3.4-5.1); Sodium 135 mmol/L (137-145)
== END ==
PROVIDERS: PCP Family Medicine; Referring Provider Family Medicine; Visit Provider Family Medicine
DX: E87.5 Hyperkalemia (principal)
CPT/HCPCS: 36415; 80048

== ENCOUNTER → 2019-12-24 19:04 | Outpatient (CLI) | payer OTHER, SELFPAY | PROVIDERS: PCP Family Medicine; Referring Provider Internal Medicine; Visit Provider Internal Medicine | DX: Z23 Encounter for immunization (principal) | CPT/HCPCS: 90471; 90686 ==

== ENCOUNTER → 2020-02-08 09:41 | Outpatient (CLI) | payer OTHER, SELFPAY ==
[2020-02-08 11:17] LABS: COVID19 -Nasal RAPID Negative (Negative)
== END ==
PROVIDERS: PCP Family Medicine; Visit Provider Physician Assistant
DX: Z11.59 Encounter for screening for other viral diseases (principal)
CPT/HCPCS: 87635

== ENCOUNTER → 2020-02-28 13:27 | Outpatient (CLI) | payer OTHER, SELFPAY ==
[2020-02-28 13:51] LABS: COVID19 -Nasal RAPID Negative (Negative)
== END ==
PROVIDERS: PCP Family Medicine; Visit Provider Physician Assistant
DX: R05 Cough (principal); R09.89 Other specified symptoms and signs involving the circulatory and respiratory systems; R50.9 Fever, unspecified
CPT/HCPCS: 87635

== ENCOUNTER → 2020-03-26 07:46 | Outpatient (CLI) | payer OTHER, MEDICAID, SELFPAY ==
[2020-03-26 09:12] LABS: Free T3, Triiodothyronine Free 4.12 pg/mL (2.77-5.27)
[2020-03-26 09:25] LABS: TSH w/ Reflex to FT4 4.39 uIU/mL (0.47-4.68)
[2020-03-28 14:39] LABS: Alanine Aminotransferase 132 IU/L (<35); Albumin 4.2 g/dL (3.5-5.0); Albumin Globulin Ratio 1.4 (1.0-2.8); Alkaline Phosphatase 88 U/L (38-126); Aspartate Aminotransferase 56 IU/L (14-36); BUN Creatinine Ratio 17.1 (6-22); Bilirubin Total 0.4 mg/dL (0.2-1.3); Blood Urea Nitrogen 13 mg/dL (7-17); Calcium 10.1 mg/dL (8.4-10.2); Carbon Dioxide 28 mmol/L (22-32); Chloride 101 mmol/L (98-107); Estimated Glomerular Filt Rate > 60.0 mL/min (>60); Globulin 2.9 g/dL (1.7-4.1); Glucose 128 mg/dL (70-100); HEMOLYSIS < 15 (0-50); Potassium 4.8 mmol/L (3.4-5.1); Sodium 137 mmol/L (137-145); Total Protein 7.1 g/dL (6.3-8.2)
== END ==
PROVIDERS: PCP Family Medicine; Referring Provider Family Medicine; Visit Provider Family Medicine
DX: Z23 Encounter for immunization (principal); E03.9 Hypothyroidism, unspecified; R79.89 Other specified abnormal findings of blood chemistry
CPT/HCPCS: 0011A; 36415; 80053; 84443; 84481; 91301

== ENCOUNTER → 2020-03-26 10:29 | Outpatient (CLI) | payer OTHER, SELFPAY ==
[2020-03-26] MEDS: COVID-19 VACC(MODERNA-1)/PF 100 MCG/0.5 ML VIAL IM (10:31)
== END ==
PROVIDERS: PCP Family Medicine; Visit Provider Internal Medicine
DX: Z23 Encounter for immunization (principal); E03.9 Hypothyroidism, unspecified; R79.89 Other specified abnormal findings of blood chemistry
CPT/HCPCS: 0011A; 91301

== ENCOUNTER → 2020-04-22 10:17 | Outpatient (CLI) | payer OTHER, SELFPAY ==
[2020-04-22] MEDS: COVID-19 VACC #2, MRNA(MOD) 100 MCG/0.5 ML VIAL IM (10:23)
== END ==
PROVIDERS: PCP Family Medicine; Visit Provider Internal Medicine
DX: Z23 Encounter for immunization (principal)
CPT/HCPCS: 0012A; 91301

== ENCOUNTER → 2020-06-05 07:50 | Outpatient (CLI) | payer OTHER, SELFPAY ==
[2020-06-05 08:53] LABS: Alanine Aminotransferase 230 IU/L (<35); Albumin 4.5 g/dL (3.5-5.0); Albumin Globulin Ratio 1.7 (1.0-2.8); Alkaline Phosphatase 93 U/L (38-126); Aspartate Aminotransferase 141 IU/L (14-36); BUN Creatinine Ratio 18.4 (6-22); Bilirubin Total 0.7 mg/dL (0.2-1.3); Blood Urea Nitrogen 14 mg/dL (7-17); Calcium 9.3 mg/dL (8.4-10.2); Carbon Dioxide 25 mmol/L (22-32); Chloride 102 mmol/L (98-107); Estimated Glomerular Filt Rate > 60.0 mL/min (>60); Globulin 2.7 g/dL (1.7-4.1); Glucose 127 mg/dL (70-100); HEMOLYSIS < 15 (0-50); Potassium 4.4 mmol/L (3.4-5.1); Sodium 138 mmol/L (137-145); Total Protein 7.2 g/dL (6.3-8.2)
[2020-06-05 09:22] LABS: TSH w/ Reflex to FT4 0.62 uIU/mL (0.47-4.68)
== END ==
PROVIDERS: PCP Family Medicine; Referring Provider Family Medicine; Visit Provider Family Medicine
DX: E03.9 Hypothyroidism, unspecified (principal); E66.01 Morbid (severe) obesity due to excess calories; R74.01 Elevation of levels of liver transaminase levels; Z68.42 Body mass index [BMI] 45.0-49.9, adult
CPT/HCPCS: 36415; 80053; 84443

== ENCOUNTER → 2020-07-01 09:16 | Outpatient (CLI) | payer OTHER, SELFPAY ==
--- NOTE | 2020-07-01 09:17 | DI.US.S_ITS ---
PROCEDURE: US ABDOMEN COMPLETE INDICATIONS: INCREASING TRANSAMINASE TECHNIQUE: Real-time scanning was performed of the abdominal and retroperitoneal organs, with image documentation. COMPARISON: [facility], US, US ABDOMEN COMPLETE, 10/12/2018, 12:22. FINDINGS: Liver: Liver is normal in size and homogeneous in echotexture, diffusely hyperechoic consistent fatty infiltration with a slight degree of sparing at the gallbladder margin and adjacent to the anterior aracelis hepatis.. Gallbladder: The gallbladder appears normal. Biliary ducts: Intrahepatic bile ducts are non-dilated. Extrahepatic bile duct caliber measures 1.7 mm. Normal is 6-7 mm or less in diameter, or 10 mm or less post-cholecystectomy. Pancreas: Visualized portions of the pancreas are sonographically normal. Spleen: Spleen is normal in size and homogeneous in echotexture. Kidneys: Kidneys are normal in size and echotexture. Right kidney measures 11.4 cm long; left kidney measures 11.5 cm long. No hydronephrosis or nephrolithiasis. No solid masses. A right kidney cyst is seen at the parapelvic mid kidney junction measuring 1 cm in maximal dimension. Aorta: Visualized aorta is normal in caliber at less than 3 cm. Iliacs: Proximal common iliac arteries are normal in caliber at less than 2.5 cm. IVC: Intrahepatic inferior vena cava is patent. Miscellaneous: No free abdominal fluid. IMPRESSION: Fatty infiltration prominent throughout the liver. No focal liver lesion seen. No biliary distension found. No sign of hydronephrosis or nephrolithiasis. Bile ducts are normal in caliber. Dictated by: Sánchez Turcios M.D. on 07/01/2020 at 12:35 Approved by: Sánchez Turcios M.D. on 07/01/2020 at 12:38
== END ==
PROVIDERS: PCP Family Medicine; Referring Provider Family Medicine; Visit Provider Family Medicine
DX: R74.01 Elevation of levels of liver transaminase levels (principal); K76.0 Fatty (change of) liver, not elsewhere classified
CPT/HCPCS: 76700

== ENCOUNTER → 2020-11-03 08:00 | Outpatient (CLI) | payer OTHER, SELFPAY ==
[2020-11-03 09:10] LABS: Hemoglobin A1C% w Est Avg Glu 5.7 % (4.0-6.0)
[2020-11-03 09:26] LABS: Alanine Aminotransferase 191 IU/L (<35); Albumin 4.5 g/dL (3.5-5.0); Albumin Globulin Ratio 1.5 (1.0-2.8); Alkaline Phosphatase 78 U/L (38-126); Aspartate Aminotransferase 104 IU/L (14-36); BUN Creatinine Ratio 15.4 (6-22); Bilirubin Total 0.4 mg/dL (0.2-1.3); Blood Urea Nitrogen 12 mg/dL (7-17); Calcium 9.5 mg/dL (8.4-10.2); Carbon Dioxide 27 mmol/L (22-32); Chloride 104 mmol/L (98-107); Estimated Glomerular Filt Rate > 60.0 mL/min (>60); Globulin 3.1 g/dL (1.7-4.1); Glucose 117 mg/dL (70-100); HEMOLYSIS < 15 (0-50); Potassium 4.6 mmol/L (3.4-5.1); Sodium 139 mmol/L (137-145); Total Protein 7.6 g/dL (6.3-8.2)
[2020-11-03 10:00] LABS: TSH w/ Reflex to FT4 2.81 uIU/mL (0.47-4.68)
== END ==
PROVIDERS: PCP Family Medicine; Referring Provider Family Medicine; Visit Provider Family Medicine
DX: K76.0 Fatty (change of) liver, not elsewhere classified (principal); E03.9 Hypothyroidism, unspecified; R73.9 Hyperglycemia, unspecified
CPT/HCPCS: 36415; 80053; 83036; 84443

== ENCOUNTER → 2020-12-04 14:39 | Outpatient (CLI) | payer OTHER, SELFPAY ==
--- NOTE | 2020-12-04 | DI.RAD.S_ITS ---
PROCEDURE: XR HAND RT MIN 3V INDICATIONS: hand pain and bruising TECHNIQUE: 3 views of the hand acquired. COMPARISON: None. FINDINGS: Bones: No acute fractures or dislocations. Carpal bones are normally aligned. No suspicious bony lesions. Soft tissues: No suspicious soft tissue calcifications. Soft tissue edema is seen at the dorsum of the hand. IMPRESSION: No acute osseous abnormality. If clinical suspicion and/or symptoms persist, additional imaging with repeat plain films, or advanced imaging (e.g. CT, MRI) may be helpful for further assessment. Dictated by: Gabriel Desouza M.D. on 12/04/2020 at 15:27 Approved by: Gabriel Desouza M.D. on 12/04/2020 at 15:28
== END ==
PROVIDERS: PCP Family Medicine; Referring Provider Family Medicine; Visit Provider Family Medicine
DX: M25.541 Pain in joints of right hand (principal)
CPT/HCPCS: 73130

== ENCOUNTER → 2020-12-21 13:53 | Outpatient (CLI) | payer OTHER, SELFPAY ==
[2020-12-21 18:22] LABS: COVID19 -Nasal RAPID Negative (Negative)
== END ==
PROVIDERS: PCP Family Medicine; Visit Provider Nurse Practitioner Family
DX: Z20.822 Contact with and (suspected) exposure to COVID-19 (principal)
CPT/HCPCS: 87635

== ENCOUNTER → 2021-01-05 | Outpatient (CLI) | payer OTHER, SELFPAY | PROVIDERS: PCP Family Medicine; Referring Provider Internal Medicine; Visit Provider Internal Medicine | DX: Z23 Encounter for immunization (principal) | CPT/HCPCS: 90471; 90686 ==

== ENCOUNTER → 2021-01-29 14:30 | Outpatient (CLI) | payer OTHER, MEDICAID, SELFPAY ==
[2021-01-29] MEDS: COVID-19 VACC #3, MRNA(MOD) 50 MCG/0.25 ML VIAL IM (14:35)
== END ==
PROVIDERS: PCP Family Medicine; Visit Provider Internal Medicine
DX: Z23 Encounter for immunization (principal)
CPT/HCPCS: 0013A; 91301

== ENCOUNTER → 2021-07-05 08:31 | Outpatient (CLI) | payer OTHER, MEDICAID, SELFPAY ==
[2021-07-05 11:51] LABS: Add Manual Diff / Slide Review NO; Basophils Absolute Auto 100 /uL (0-100); Basophils Percent Auto 0.7 % (0-2); Eosinophils Absolute Auto 100 /uL (0-450); Eosinophils Percent Auto 1.7 % (2-4); Hematocrit 42.3 % (36-46); Hemoglobin 14.1 g/dL (12.0-16.0); Lymphocytes Absolute Auto 2500 /uL (1100-4500); Lymphocytes Percent Auto 34.2 % (25-40); Mean Corpuscular HGB Conc 33.4 % (30-36); Mean Corpuscular Hemoglobin 28.7 PG (26-34); Mean Corpuscular Volume 85.9 fL (80-100); Monocytes Absolute Auto 600 /uL (0-900); Neutrophils Absolute Auto 4000 /uL (1500-7000); Neutrophils Percent Auto 55.4 % (50-75); Platelet Count 315 X10^3/uL (150-400); Red Blood Cell Count 4.92 X10^6/uL (4.0-5.2); Red Cell Distribution Width 12.7 % (11.6-14.8); White Blood Cell Count 7.2 X10^3/uL (4.5-11.0)
[2021-07-05 12:10] LABS: Alanine Aminotransferase 122 IU/L (<35); Albumin 4.9 g/dL (3.5-5.0); Albumin Globulin Ratio 1.7 (1.0-2.8); Alkaline Phosphatase 80 U/L (38-126); Aspartate Aminotransferase 48 IU/L (14-36); BUN Creatinine Ratio 15.4 (6-22); Bilirubin Total 0.6 mg/dL (0.2-1.3); Blood Urea Nitrogen 12 mg/dL (7-17); Calcium 9.5 mg/dL (8.4-10.2); Carbon Dioxide 28 mmol/L (22-32); Chloride 102 mmol/L (98-107); Estimated Glomerular Filt Rate > 60 mL/min (>60); Globulin 2.9 g/dL (1.7-4.1); Glucose 111 mg/dL (70-100); HEMOLYSIS < 15 (0-50); Potassium 4.6 mmol/L (3.4-5.1); Sodium 140 mmol/L (137-145); Total Protein 7.8 g/dL (6.3-8.2)
[2021-07-05 12:11] LABS: Hemoglobin A1C% w Est Avg Glu 6.5 % (4.0-6.0)
[2021-07-05 12:14] LABS: Iron 155 ug/dL (37-170)
[2021-07-05 12:17] LABS: Prealbumin 30.3 mg/dL (17.6-36.0)
[2021-07-05 12:23] LABS: Percent Iron Saturation 42 % (15-50); Total Iron Binding Capacity 372 ug/dL (265-497)
[2021-07-05 12:47] LABS: Ferritin 169 ng/mL (6-137)
[2021-07-05 13:19] LABS: Folate > 20.0 ng/mL (2.76-20.0); Vitamin B12 567 pg/mL (239-931)
[2021-07-05 13:59] LABS: Thyroid Stimulating Hormone 2.62 uIU/mL (0.47-4.68)
[2021-07-06 09:14] LABS: Parathyroid Hormone Int 25 pg/mL (15-65)
[2021-07-07 07:57] LABS: Cholesterol, Total 190 mg/dL (100-199); HDL-Cholesterol 46 mg/dL (>39); HDL-Particle (Total) 29.6 umol/L (>=30.5); LDL Particle 1350 nmol/L (<1000); LDL Size 21.6 nm (>20.5); LDL-Cholsterol 126 mg/dL (0-99); LP-IR Score 46 (<=45); Small LDL- Particle 505 nmol/L (<=527); Triglycerides 99 mg/dL (0-149)
[2021-07-08 15:58] LABS: Methylmalonic Acid,Serum 149 nmol/L (0-378)
[2021-07-09 08:57] LABS: Vitamin B1 97.4 nmol/L (66.5-200.0)
== END ==
PROVIDERS: PCP Family Medicine; Referring Provider Surgery; Visit Provider Surgery
DX: E66.01 Morbid (severe) obesity due to excess calories (principal); R73.03 Prediabetes; K76.0 Fatty (change of) liver, not elsewhere classified; Z68.41 Body mass index [BMI] 40.0-44.9, adult; Z83.3 Family history of diabetes mellitus
CPT/HCPCS: 36415; 80053; 80061; 82306; 82607; 82728; 82746; 83036; 83540; 83550; 83704; 83921; 83970; 84134; 84425; 84443; 85025; 93005

== ENCOUNTER → 2021-08-03 16:34 | Outpatient (CLI) | payer OTHER, MEDICAID, SELFPAY ==
--- NOTE | 2021-08-03 | DI.RAD.S_ITS ---
PROCEDURE: XR CHEST 2V INDICATIONS: MORBID OBESITY TECHNIQUE: 2 views of the chest were acquired. COMPARISON: [facility], , CHEST 2 VIEW, 01/25/2017, 14:38. FINDINGS: Surgical changes and devices: None. Lungs and pleura: Lungs are clear. No pleural effusions or pneumothorax. Mediastinum: Mediastinal contours are normal. Heart size is normal. Bones and chest wall: No suspicious bony abnormalities. Soft tissues appear unremarkable. IMPRESSION: No acute cardiopulmonary disease. Dictated by: Julee Winchester M.D. on 08/04/2021 at 8:48 Approved by: Julee Winchester M.D. on 08/04/2021 at 8:48
== END ==
PROVIDERS: PCP Family Medicine; Referring Provider Surgery; Visit Provider Surgery
DX: E66.01 Morbid (severe) obesity due to excess calories (principal)
CPT/HCPCS: 71046

== ENCOUNTER → 2021-09-06 13:23 | Outpatient (CLI) | payer OTHER, SELFPAY ==
[2021-09-06 14:14] LABS: COVID19 -Nasal RAPID Negative (Negative)
== END ==
PROVIDERS: PCP Family Medicine; Visit Provider Surgery
DX: Z01.812 Encounter for preprocedural laboratory examination (principal); Z20.822 Contact with and (suspected) exposure to COVID-19
CPT/HCPCS: 87635; C9803

== ENCOUNTER → 2021-12-14 09:00 | Outpatient (CLI) | payer OTHER, MEDICAID, SELFPAY | PROVIDERS: PCP Family Medicine; Referring Provider Internal Medicine; Visit Provider Internal Medicine | DX: Z23 Encounter for immunization (principal) | CPT/HCPCS: 90471; 90686 ==

== ENCOUNTER → 2021-12-24 13:53 | Outpatient (CLI) | payer OTHER, MEDICAID, SELFPAY ==
[2021-12-24 15:16] LABS: Hemoglobin A1C% w Est Avg Glu 5.8 % (4.0-6.0)
[2021-12-24 15:31] LABS: Vitamin D 25 Hydroxy (D3) 27.7 ng/mL (30.0-100.0)
== END ==
PROVIDERS: PCP Family Medicine; Referring Provider Family Medicine; Visit Provider Family Medicine
DX: E11.9 Type 2 diabetes mellitus without complications (principal); E55.9 Vitamin D deficiency, unspecified
CPT/HCPCS: 36415; 82306; 83036

== ENCOUNTER → 2022-02-09 12:16 | Outpatient (CLI) | payer OTHER, MEDICAID, SELFPAY ==
[2022-02-09 14:03] LABS: Add Manual Diff / Slide Review NO; Basophils Absolute Auto 100 /uL (0-100); Basophils Percent Auto 0.7 % (0-2); Eosinophils Absolute Auto 200 /uL (0-450); Hematocrit 39.7 % (36-46); Hemoglobin 13.4 g/dL (12.0-16.0); Lymphocytes Absolute Auto 2500 /uL (1100-4500); Lymphocytes Percent Auto 29.4 % (25-40); Mean Corpuscular HGB Conc 33.7 % (30-36); Mean Corpuscular Hemoglobin 28.8 PG (26-34); Mean Corpuscular Volume 85.6 fL (80-100); Monocytes Absolute Auto 600 /uL (0-900); Monocytes Percent Auto 7.7 % (3-14); Neutrophils Absolute Auto 5100 /uL (1500-7000); Neutrophils Percent Auto 60.2 % (50-75); Platelet Count 276 X10^3/uL (150-400); Red Blood Cell Count 4.63 X10^6/uL (4.0-5.2); Red Cell Distribution Width 12.8 % (11.6-14.8); White Blood Cell Count 8.4 X10^3/uL (4.5-11.0)
[2022-02-09 14:19] LABS: Alanine Aminotransferase 221 IU/L (<35); Albumin 4.4 g/dL (3.5-5.0); Albumin Globulin Ratio 1.5 (1.0-2.8); Alkaline Phosphatase 90 U/L (38-126); Aspartate Aminotransferase 92 IU/L (14-36); BUN Creatinine Ratio 14.4 (6-22); Bilirubin Total 0.5 mg/dL (0.2-1.3); Blood Urea Nitrogen 13 mg/dL (7-17); Calcium 9.2 mg/dL (8.4-10.2); Carbon Dioxide 28 mmol/L (22-32); Chloride 99 mmol/L (98-107); Estimated Glomerular Filt Rate > 60 mL/min (>60); Glucose 102 mg/dL (70-100); HEMOLYSIS < 15 (0-50); Potassium 4.6 mmol/L (3.4-5.1); Sodium 137 mmol/L (137-145); Total Protein 7.4 g/dL (6.3-8.2)
== END ==
PROVIDERS: PCP Family Medicine; Referring Provider Surgery; Visit Provider Surgery
DX: E66.01 Morbid (severe) obesity due to excess calories (principal); Z68.42 Body mass index [BMI] 45.0-49.9, adult
CPT/HCPCS: 36415; 80053; 85025

== ENCOUNTER → 2022-02-14 13:38 | Outpatient (CLI) | payer OTHER, MEDICAID, SELFPAY | PROVIDERS: PCP Family Medicine; Referring Provider Surgery; Visit Provider Surgery | DX: E66.01 Morbid (severe) obesity due to excess calories (principal); Z68.42 Body mass index [BMI] 45.0-49.9, adult; Z20.822 Contact with and (suspected) exposure to COVID-19 | CPT/HCPCS: 87635; 93005; C9803 ==

== ENCOUNTER → 2022-02-14 13:50 | Outpatient (CLI) | payer OTHER, MEDICAID, SELFPAY ==
[2022-02-14 14:38] LABS: COVID19 -Nasal RAPID Negative (Negative)
== END ==
PROVIDERS: PCP Family Medicine; Visit Provider Surgery
DX: Z01.812 Encounter for preprocedural laboratory examination (principal); Z20.822 Contact with and (suspected) exposure to COVID-19
CPT/HCPCS: 87635

== ENCOUNTER → 2022-05-20 10:14 | Outpatient (CLI) | payer OTHER, MEDICAID, SELFPAY ==
[2022-05-20 10:47] LABS: Add Manual Diff / Slide Review NO; Basophils Absolute Auto 0 /uL (0-100); Basophils Percent Auto 0.5 % (0-2); Eosinophils Absolute Auto 100 /uL (0-450); Eosinophils Percent Auto 1.2 % (2-4); Hemoglobin 13.7 g/dL (12.0-16.0); Lymphocytes Absolute Auto 1500 /uL (1100-4500); Lymphocytes Percent Auto 23.7 % (25-40); Mean Corpuscular HGB Conc 32.6 % (30-36); Mean Corpuscular Volume 85.9 fL (80-100); Monocytes Absolute Auto 500 /uL (0-900); Monocytes Percent Auto 7.2 % (3-14); Neutrophils Absolute Auto 4400 /uL (1500-7000); Neutrophils Percent Auto 67.4 % (50-75); Platelet Count 258 X10^3/uL (150-400); Red Blood Cell Count 4.89 X10^6/uL (4.0-5.2); Red Cell Distribution Width 14.2 % (11.6-14.8); White Blood Cell Count 6.5 X10^3/uL (4.5-11.0)
[2022-05-20 11:04] LABS: Hemoglobin A1C% w Est Avg Glu 5.3 % (4.0-6.0)
[2022-05-20 11:23] LABS: Alanine Aminotransferase 99 IU/L (<35); Albumin 4.5 g/dL (3.5-5.0); Albumin Globulin Ratio 1.3 (1.0-2.8); Alkaline Phosphatase 129 U/L (38-126); Aspartate Aminotransferase 61 IU/L (14-36); BUN Creatinine Ratio 16.7 (6-22); Blood Urea Nitrogen 11 mg/dL (7-17); Calcium 9.3 mg/dL (8.4-10.2); Carbon Dioxide 27 mmol/L (22-32); Chloride 102 mmol/L (98-107); Estimated Glomerular Filt Rate > 60 mL/min (>60); Globulin 3.4 g/dL (1.7-4.1); Glucose 95 mg/dL (70-100); HEMOLYSIS < 15 (0-50); Magnesium 1.8 mg/dL (1.6-2.3); Sodium 138 mmol/L (137-145); Total Protein 7.9 g/dL (6.3-8.2)
[2022-05-20 11:27] LABS: HEMOLYSIS < 15 (0-50); Iron 167 ug/dL (37-170)
[2022-05-20 11:29] LABS: Prealbumin 24.9 mg/dL (17.6-36.0)
[2022-05-20 11:37] LABS: Percent Iron Saturation 48 % (15-50); Total Iron Binding Capacity 346 ug/dL (265-497); Transferrin 244 mg/dL (206-381)
[2022-05-20 11:58] LABS: Ferritin 130 ng/mL (6-137)
[2022-05-20 12:29] LABS: Folate 16.2 ng/mL (2.76-20.0); Vitamin B12 578 pg/mL (239-931)
[2022-05-22 07:39] LABS: Ceruloplasmin 28.3 mg/dL (19.0-39.0)
[2022-05-22 18:20] LABS: Calcium 9.7 mg/dL (8.7-10.2); Parathyroid Hormone, Intact 42 pg/mL (15-65)
[2022-05-22 23:38] LABS: Zinc 81 ug/dL (44-115)
[2022-05-23 11:09] LABS: Lipoprotein (a) 20.1 nmol/L (<75.0)
[2022-05-24 09:36] LABS: Methylmalonic Acid,Serum 144 nmol/L (0-378)
[2022-05-26 08:30] LABS: Vitamin B1 132.8 nmol/L (66.5-200.0)
[2022-06-01 07:50] LABS: Vitamin A 39.8 ug/dL (18.9-57.3)
== END ==
PROVIDERS: PCP Family Medicine; Referring Provider Family Medicine; Visit Provider Family Medicine
DX: Z98.84 Bariatric surgery status (principal)
CPT/HCPCS: 36415; 80053; 82306; 82310; 82390; 82525; 82607; 82728; 82746; 83036; 83540; 83550; 83695; 83735; 83921; 83970; 84134; 84425; 84590; 84630; 85025

== ENCOUNTER → 2022-07-20 09:18 | Outpatient (CLI) | payer OTHER, MEDICAID, SELFPAY ==
[2022-07-20 12:15] LABS: Alanine Aminotransferase 87 IU/L (<35); Albumin 4.6 g/dL (3.5-5.0); Albumin Globulin Ratio 1.5 (1.0-2.8); Alkaline Phosphatase 99 U/L (38-126); Aspartate Aminotransferase 55 IU/L (14-36); BUN Creatinine Ratio 11.8 (6-22); Bilirubin Total 0.4 mg/dL (0.2-1.3); Blood Urea Nitrogen 8 mg/dL (7-17); Carbon Dioxide 27 mmol/L (22-32); Chloride 101 mmol/L (98-107); Estimated Glomerular Filt Rate > 60 mL/min (>60); Glucose 66 mg/dL (70-100); HEMOLYSIS < 15 (0-50); Potassium 4.5 mmol/L (3.4-5.1); Sodium 140 mmol/L (137-145); Total Protein 7.6 g/dL (6.3-8.2)
[2022-07-20 12:21] LABS: Vitamin D 25 Hydroxy (D3) 71.8 ng/mL (30.0-100.0)
== END ==
PROVIDERS: PCP Family Medicine; Referring Provider Family Medicine; Visit Provider Family Medicine
DX: E55.9 Vitamin D deficiency, unspecified (principal); E03.9 Hypothyroidism, unspecified; K76.0 Fatty (change of) liver, not elsewhere classified
CPT/HCPCS: 36415; 80053; 82306; 84443

== ENCOUNTER → 2022-07-25 08:40 | Outpatient (CLI) | payer OTHER, MEDICAID, SELFPAY ==
--- NOTE | 2022-07-25 08:41 | DI.RAD.S_ITS ---
PROCEDURE: XR SHOULDER RT MIN 2V INDICATIONS: right shoulder pain, h/o surgery TECHNIQUE: 3 views of the shoulder were acquired. COMPARISON: None. FINDINGS: Bones: No fractures or dislocations. No suspicious bony lesions. Widening at the acromioclavicular joint is likely postoperative in nature. Visualized ribs appear intact. Soft tissues: No suspicious soft tissue calcifications. IMPRESSION: No radiographic abnormalities. Dictated by: Florencia Melvin M.D. on 07/25/2022 at 13:01 Approved by: Florencia Melvin M.D. on 07/25/2022 at 13:04
== END ==
PROVIDERS: PCP Family Medicine; Referring Provider Family Medicine; Visit Provider Family Medicine
DX: M25.511 Pain in right shoulder (principal)
CPT/HCPCS: 73030

== ENCOUNTER → 2022-10-18 13:30 | Outpatient (CLI) | payer OTHER, SELFPAY ==
[2022-10-18 16:57] LABS: Microalbumi Creatinin Ratio Ur 17.9 ug/mg CR (<30)
== END ==
PROVIDERS: PCP Family Medicine; Visit Provider Physician Assistant
DX: R63.1 Polydipsia (principal); R39.9 Unspecified symptoms and signs involving the genitourinary system; E11.9 Type 2 diabetes mellitus without complications
CPT/HCPCS: 82043; 82570; 87086

== ENCOUNTER → 2022-12-22 03:33 | Outpatient (CLI) | payer OTHER, SELFPAY | PROVIDERS: PCP Student in an Organized Health Care Education/Training Program; Referring Provider Family Medicine; Visit Provider Family Medicine | DX: Z23 Encounter for immunization (principal) | CPT/HCPCS: 90471; 90686 ==

== ENCOUNTER → 2023-02-22 09:05 | Outpatient (CLI) | payer OTHER, SELFPAY ==
[2023-02-22 10:15] LABS: Alanine Aminotransferase 53 IU/L (<35); Albumin 4.3 g/dL (3.5-5.0); Albumin Globulin Ratio 1.4 (1.0-2.8); Alkaline Phosphatase 83 U/L (38-126); Aspartate Aminotransferase 39 IU/L (14-36); BUN Creatinine Ratio 18.5 (6-22); Bilirubin Total 0.6 mg/dL (0.2-1.3); Bilirubin Unconjugated 0.4 mg/dL (0.0-1.1); Blood Urea Nitrogen 12 mg/dL (7-17); Calcium 9.6 mg/dL (8.4-10.2); Carbon Dioxide 28 mmol/L (22-32); Chloride 102 mmol/L (98-107); Cholesterol 171 mg/dL (140-199); Estimated Glomerular Filt Rate > 60 mL/min (>60); Glucose 85 mg/dL (70-100); HDL Cholesterol 75 mg/dL (40-60); HEMOLYSIS < 15 (0-50); LDL Cholesterol Calculated 75 mg/dL (<100); Potassium 4.9 mmol/L (3.4-5.1); Sodium 138 mmol/L (137-145); Total Protein 7.3 g/dL (6.3-8.2); Triglycerides 105 mg/dL (35-150)
[2023-02-22 10:33] LABS: Vitamin D 25 Hydroxy (D3) 33.1 ng/mL (30.0-100.0)
[2023-02-22 11:04] LABS: Vitamin B12 568 pg/mL (239-931)
== END ==
PROVIDERS: PCP Student in an Organized Health Care Education/Training Program; Referring Provider Student in an Organized Health Care Education/Training Program; Visit Provider Student in an Organized Health Care Education/Training Program
DX: E03.9 Hypothyroidism, unspecified (principal); K76.0 Fatty (change of) liver, not elsewhere classified; Z98.84 Bariatric surgery status; E55.9 Vitamin D deficiency, unspecified; E53.8 Deficiency of other specified B group vitamins; E78.5 Hyperlipidemia, unspecified
CPT/HCPCS: 36415; 80053; 80061; 80076; 82306; 82607; 84443

== ENCOUNTER 2023-05-30 11:03 | Emergency (ER) | payer OTHER, SELFPAY ==
[2023-05-30] VITALS (8 sets, daily range): BP systolic 125–152; BP diastolic 70–88; PULSE 94–109; RESP 19; TEMP 36.7; O2SAT 96–99; BMI 30.2
[2023-05-30] MEDS: SODIUM CHLORIDE 0.9% 1,000 ML 1000 ML IV (11:39)
[2023-05-30 11:41] LABS: Add Manual Diff / Slide Review NO; Basophils Absolute Auto 100 /uL (0-100); Basophils Percent Auto 1.1 % (0-2); Eosinophils Absolute Auto 0 /uL (0-450); Eosinophils Percent Auto 0.4 % (2-4); Hematocrit 38.9 % (36-46); Hemoglobin 12.9 g/dL (12.0-16.0); Lymphocytes Absolute Auto 1200 /uL (1100-4500); Lymphocytes Percent Auto 18.6 % (25-40); Mean Corpuscular HGB Conc 33.3 % (30-36); Mean Corpuscular Hemoglobin 29.4 PG (26-34); Mean Corpuscular Volume 88.3 fL (80-100); Monocytes Absolute Auto 400 /uL (0-900); Monocytes Percent Auto 6.6 % (3-14); Neutrophils Absolute Auto 4700 /uL (1500-7000); Neutrophils Percent Auto 73.3 % (50-75); Platelet Count 294 X10^3/uL (150-400); Red Blood Cell Count 4.41 X10^6/uL (4.0-5.2); White Blood Cell Count 6.4 X10^3/uL (4.5-11.0)
[2023-05-30 11:53] LABS: Alanine Aminotransferase 44 IU/L (<35); Albumin 4.8 g/dL (3.5-5.0); Albumin Globulin Ratio 1.3 (1.0-2.8); Alkaline Phosphatase 96 U/L (38-126); Aspartate Aminotransferase 43 IU/L (14-36); BUN Creatinine Ratio 18.8 (6-22); Bilirubin Total 0.8 mg/dL (0.2-1.3); Blood Urea Nitrogen 12 mg/dL (7-17); Calcium 9.4 mg/dL (8.4-10.2); Carbon Dioxide 27 mmol/L (22-32); Chloride 106 mmol/L (98-107); Estimated Glomerular Filt Rate > 60 mL/min (>60); Globulin 3.7 g/dL (1.7-4.1); Glucose 88 mg/dL (70-100); HEMOLYSIS < 15 (0-50); Lipase 83 U/L (23-300); Potassium 4.6 mmol/L (3.4-5.1); Sodium 140 mmol/L (137-145); Total Protein 8.5 g/dL (6.3-8.2)
[2023-05-30 12:31] LABS: Adenovirus Not Detected (Not Detect); B. parapertussis Not Detected (Not Detecte); Bordetella pertussis Not Detected (Not Detect); Chlamydophila pneumoniae Not Detected (Not Detect); Coronavirus 229E Not Detected (Not Detect); Coronavirus HKU1 Not Detected (Not Detect); Coronavirus NL 63 Not Detected (Not Detect); Coronavirus OC43 Not Detected (Not Detect); Human Metapneumovirus Not Detected (Not Detect); Human Rhinovirus/Enterovirus Not Detected (Not Detect); Influenza A Not Detected (Not Detect); Influenza B Not Detected (Not Detect); Mycoplasma pneumoniae Not Detected (Not Detect); Parainfluenza Virus 1 Not Detected (Not Detect); Parainfluenza Virus 2 Not Detected (Not Detect); Parainfluenza Virus 3 Not Detected (Not Detect); Parainfluenza Virus 4 Not Detected (Not Detect); Respiratory Syncytial Virus Not Detected (Not Detect); SARS- CoV-2 Not Detected (Not Detecte)
--- NOTE | 2023-05-30 13:38 | ED_ITS ---
HPI - Weakness General Chief complaint: Weakness Stated complaint: loss apetite t-3, weakness, cold Time Seen by Provider: 05/30/23 11:17 Source: patient Mode of arrival: Ambulatory History of Present Illness HPI Narrative: 38-year-old female with history of bariatric surgery who presents with complaint of just generally feeling weak and unwell, decreased appetite, cold and shaky in the last 24 hours. Patient states no fevers. No cold cough congestion symptoms. Denies chest pain or shortness breath. No abdominal back or flank pain. No nausea or vomiting. Denies any GI or urinary symptoms otherwise such as diarrhea constipation, no dysuria urgency or frequency. Patient states has not been eating or drinking much because it bariatric surgery. Patient is on citalopram daily, gabapentin, has not IUD. Has had prior tonsillectomy, history of bariatric surgery. Former smoker, occasional alcohol, no recreational drugs. Related Data Home Medications Medication Instructions Recorded Confirmed levonorgestrel 21 mcg/24 hours (8 1 device intrauterine CONT 12/05/17 01/19/23 yrs) 52 mg intrauterine device (Mirena) calcium carbonate 600 mg calcium 1,200 mg PO DAILY 07/15/21 01/19/23 (1,500 mg) tablet (Calcium) cholecalciferol (vitamin D3) 50 50 mcg PO DAILY 07/15/21 01/19/23 mcg (2,000 unit) tablet multivitamin (Multiple Vitamins 1 tab PO DAILY 07/15/21 01/19/23 tablet) Previous Rx's Medication Instructions Recorded citalopram 40 mg tablet 40 mg PO DAILY #90 tabs 07/22/22 levothyroxine 50 mcg tablet See Rx Instructions .Route 07/22/22 .COMPLEX #90 tabs lorazepam 1 mg tablet 0.5 mg (1/2 x 1 mg) PO BEDTIME PRN 03/16/23 anxiety #10 tabs ondansetron HCl 8 mg tablet 8 mg PO TID PRN nausea and 04/20/23 vomiting #10 tabs sumatriptan succinate 50 mg tablet See Rx Instructions PO .COMPLEX 05/15/23 #10 tabs gabapentin 600 mg tablet 600 mg PO DAILY #90 tabs 05/16/23 Allergies Allergy/AdvReac Type Severity Reaction Status Date / Time buspirone AdvReac Intermediate Fatigue Verified 05/30/23 11:09 adhesive tape AdvReac Mild Rash Verified 05/30/23 11:09 hydroxyzine AdvReac Mild Headache Verified 05/30/23 11:09 lactose AdvReac Mild diarrhes, Verified 05/30/23 11:09 stomach cramping latex [LATEX] AdvReac Mild Rash Verified 05/30/23 11:09 NSAIDS (Non-Steroidal AdvReac Unknown TEARS MY Verified 05/30/23 11:09 Anti-Inflamma STOMACH UP [NSAIDS (NON-STEROIDAL ANTI-INFLAMMA] Review of Systems Review of Systems ROS Unobtainable: All systems reviewed & are unremarkable except as noted in HPI and below Patient History Medical History Vitamin D deficiency Type 2 diabetes mellitus Fatty liver Acid reflux History of migraine Deviated septum Vision disorder Snoring Collapsed lung (~2013) Seasonal allergies (~2013) Post traumatic stress disorder (PTSD) (~2015) Depression (~2006) Anxiety (~2006) Chicken pox Painful menstrual periods (~1999) Ovarian cyst (~1999) Irregular menstrual cycle (~1999) Heavy menstrual period (~2013) Endometriosis (~1999) Hypothyroidism (~2013) Surgical History H/O gastric bypass (~02/15/22) H/O umbilical hernia repair History of dilatation and curettage (~2012) History of tonsillectomy (~2016) Anesthesia Ganglion cyst (~2015) History of shoulder surgery Status post delivery (~2013) Social History marital status: unmarried,living together household members: significant other and children occupational status: employed Smoking Status: Former smoker alcohol intake: current substance use type: does not use Smoking Status: Former smoker alcohol intake frequency: holidays/special occasions only Substance Use Type: does not use Exam Narrative Exam Narrative: GENERAL: Alert and oriented x three, mild distress. HEENT: Head normocephalic, atraumatic, EOMI, pupils reactive, face symmetric, moist mucous membranes NECK: Supple, full range of motion CARDIOVASCULAR: Regular rate and rhythm without murmurs, rubs or gallops. RESPIRATORY: Breath sounds equal bilaterally, no wheezes rales or rhonchi. ABDOMEN: Soft, nontender. Normoactive bowel sounds all 4 quadrants. No guarding or rebound, rigidity, no mass : No CVA tenderness EXTREMITIES: Normal range of motion, no clubbing or edema. Neurovascularly intact NEUROLOGICAL: Cranial nerves II through XII grossly intact. Moving all extremities SKIN: Warm, dry, no petechiae, no rashes or lesions. Initial Vital Signs Initial Vital Signs: Vital Signs Temperature 98.0 F 05/30/23 11:10 Pulse Rate 94 H 05/30/23 11:10 Respiratory Rate 19 05/30/23 11:10 Blood Pressure 152/88 H 05/30/23 11:10 Pulse Oximetry 97 05/30/23 11:10 Oxygen Delivery Method Room Air 05/30/23 11:10 Course Orders Ordered: Discontinued Medications Sodium Chloride (Normal Saline 0.9%) 1,000 mls @ 1,000 mls/hr IV BOLUS ONE Stop: 05/30/23 12:16 Last Infusion: 05/30/23 13:15 Dose: Infused Documented By: Admin: 05/30/23 11:39 Dose: 1,000 mls/hr Documented By: CHARMAINE Vital Signs Vital signs: Vital Signs - 8 hr 05/30/23 11:10 05/30/23 11:39 05/30/23 12:00 Temperature 98.0 F Pulse Rate 94 H 95 H Respiratory Rate 19 Blood Pressure 152/88 H 125/70 Pulse Oximetry 97 98 Oxygen Delivery Method Room Air 05/30/23 12:00 05/30/23 12:30 05/30/23 12:30 Temperature Pulse Rate 101 H 102 H Respiratory Rate Blood Pressure 135/75 Pulse Oximetry 99 96 Oxygen Delivery Method 05/30/23 13:00 05/30/23 13:30 05/30/23 14:00 Temperature Pulse Rate 101 H 109 H 106 H Respiratory Rate Blood Pressure Pulse Oximetry 97 98 98 Oxygen Delivery Method MDM - Weakness Lab Data 05/30/23 11:30 05/30/23 11:30 Labs: Lab Results 05/30/23 05/30/23 Range/Units 11:30 12:40 WBC 6.4 (4.5-11.0) X10^3/uL RBC 4.41 (4.0-5.2) X10^6/uL Hgb 12.9 (12.0-16.0) g/dL Hct 38.9 (36-46) % MCV 88.3 (80-100) fL MCH 29.4 (26-34) PG MCHC 33.3 (30-36) % RDW 13.0 (11.6-14.8) % Plt Count 294 (150-400) X10^3/uL Neut % (Auto) 73.3 (50-75) % Lymph % (Auto) 18.6 L (25-40) % [place] % (Auto) 6.6 (3-14) % Eos % (Auto) 0.4 L (2-4) % Baso % (Auto) 1.1 (0-2) % Neut # (Auto) 4700 (9004-0618) /uL Lymph # (Auto) 1200 (5870-0304) /uL [place] # (Auto) 400 (0-900) /uL Eos # (Auto) 0 (0-450) /uL Baso # (Auto) 100 (0-100) /uL Sodium 140 (137-145) mmol/L Potassium 4.6 (3.4-5.1) mmol/L Chloride 106 (98-107) mmol/L Carbon Dioxide 27 (22-32) mmol/L BUN 12 (7-17) mg/dL Creatinine 0.64 (0.52-1.04) mg/dL Estimated GFR > 60 (>60) mL/min BUN/Creatinine Ratio 18.8 (6-22) Glucose 88 (70-100) mg/dL Calcium 9.4 (8.4-10.2) mg/dL Total Bilirubin 0.8 (0.2-1.3) mg/dL AST 43 H (14-36) IU/L ALT 44 H (<35) IU/L Alkaline Phosphatase 96 (38-126) U/L Total Protein 8.5 H (6.3-8.2) g/dL Albumin 4.8 (3.5-5.0) g/dL Globulin 3.7 (1.7-4.1) g/dL Albumin/Globulin Ratio 1.3 (1.0-2.8) Lipase 83 (23-300) U/L Urine Color Yellow Urine Appearance Clear Urine pH 5.5 (4.5-8.0) Ur Specific [place] 1.025 (1.000-1.035) Urine Protein Negative (Negative) Urine Glucose (UA) Negative (Negative) g/dL Urine Ketones 1+ H (NEGATIVE) Urine Occult Blood Trace-intact (Negative) Urine Nitrate Negative (Negative) Urine Bilirubin Negative (NEGATIVE) Urine Urobilinogen 0.2 (0.2) E.U./dL Ur Leukocyte Esterase Negative (NEGATIVE) Urine RBC 1-5/hpf (0-5/HPF) Urine WBC None seen (0-5/HPF) Ur Squamous Epith Cells 0-1 /hpf (0-5/HPF) Urine Bacteria None seen (None) Urine Mucus 2+ H (Negative) Ur Culture Indicated? Cult not indicated Vol Urine Centrifuged 10ml (spun) Chlamy pneumoniae PCR Not detected (Not Detect) Adenovirus (PCR) Not detected (Not Detect) B.parapertussis DNA PCR Not detected (Not Detecte) Coronavirus OC43 (PCR) Not detected (Not Detect) Coronavirus HKU1 (PCR) Not detected (Not Detect) Coronavirus 229E (PCR) Not detected (Not Detect) SARS-CoV-2 (PCR) Not detected (Not Detecte) Coronavirus NL63 (PCR) Not detected (Not Detect) Human Metapneumovir PCR Not detected (Not Detect) Influenza Type A (PCR) Not detected (Not Detect) Influenza Type B (PCR) Not detected (Not Detect) M. pneumoniae (PCR) Not detected (Not Detect) Parainfluenza 1 (PCR) Not detected (Not Detect) Parainfluenza 2 (PCR) Not detected (Not Detect) Parainfluenza 3 (PCR) Not detected (Not Detect) Parainfluenza 4 (PCR) Not detected (Not Detect) RSV (PCR) Not detected (Not Detect) Entero/Rhino (PCR) Not detected (Not Detect) Point of Care Testing Test Results Negative Urine Dip Bedside Urine Glucose Negative Bedside Urine Bilirubin - Negative Bedside Urine Ketone ++ 40 Urine Specific [place] 1.030 Bedside Urine Occult Blood + Bedside Urine pH 6.0 Bedside Urine Protein - Negative Bedside Urine Urobilinogen - Negative Bedside Urine Nitrite - Negative Bedside Urine Leukocytes - Negative Esterase MDM Narrative Medical decision making narrative: Patient feels improved after fluids would like to return home. Workup does not show any major changes patient was slightly tachycardic on arrival has improved. Afebrile no hypotension normal respirations 90 8% room air. CBC shows a white count of 6.4 hemoglobin of 12.9 platelets of 294. Sodium is 140 potassium is 4 6 chloride 106 with a CO2 of 27 BUN 12 and creatinine 0.64 glucose is 88, AST is 43 ALT is 44 with negative LFTs. UA shows ketones, 1-5 RBCs no white cells 1 squamous, no bacteria, no signs of infection. Urine is negative. Respiratory panel is negative. Patient appears to have some mild dehydration not affecting her renal function or BUN. [place] improved after fluids. Patient is felt appropriate for discharge home follow up primary care as needed. Discussed return precautions. Discharge Plan Departure Patient Disposition: Home Clinical Impression: Dehydration Activity Restrictions/Additional Instructions: Your labs overall are appropriate, your AST ALT are slightly elevated and similar to priors from 2022. Your urine showed some ketones but no infectious changes. Hope you continue to feel improved. Please return have other new or concerning changes, passing out, new chest pain or shortness of breath, persistent vomiting, or other new or concerning changes. Prescriptions: No Action levothyroxine 50 mcg tablet See Rx Instructions .ROUTE .COMPLEX Qty: 90 3RF Dose Instruction: TAKE 1 TABLET BY MOUTH DAILY Rx Instructions: TAKE 1 TABLET BY MOUTH DAILY citalopram 40 mg tablet 40 mg PO DAILY Qty: 90 3RF calcium carbonate [Calcium 600] 600 mg calcium (1,500 mg) tablet 1,200 mg PO DAILY cholecalciferol (vitamin D3) 50 mcg (2,000 unit) tablet 50 mcg PO DAILY multivitamin [Multiple Vitamins] Tablet 1 tab PO DAILY lorazepam 1 mg tablet 0.5 mg PO BEDTIME PRN (Reason: anxiety) Qty: 10 0RF ondansetron HCl 8 mg tablet 8 mg PO TID PRN (Reason: nausea and vomiting) Qty: 10 0RF sumatriptan succinate 50 mg tablet See Rx Instructions PO .COMPLEX Qty: 10 3RF Rx Instructions: take 1 tab at onset of headache; if no relief may repeat 1 tab after at least 2 hrs; max = 4 tabs/24 hr PO gabapentin 600 mg tablet 600 mg PO DAILY Qty: 90 3RF Rx Instructions: Take 300 mg in the AM and 900 mg at bedtime. levonorgestrel [Mirena] 20 mcg/24 hr (5 years) intrauterine device 1 device Intrauterine CONT Patient Comments: Due out 10/2022 Referrals: Marichuy Jorgensen MD [Primary Care Provider] - Stand Alone Forms: Patient Portal/API
[2023-05-30 14:09] LABS: Appearance Urine UA CLEAR; Bilirubin Urine UA NEGATIVE (NEGATIVE); Color Urine UA YELLOW; Glucose Urine UA NEGATIVE (Negative); Ketones Urine UA 1+ (NEGATIVE); Leukocyte Esterase Urine UA NEGATIVE (NEGATIVE); Nitrite Urine UA NEGATIVE (Negative); Occult Blood Urine UA TRACE-INTACT (Negative); Protein Urine UA NEGATIVE (Negative); Specific Gravity Urine UA 1.025 (1.000-1.035); Urobilinogen Urine UA 0.2 E.U./dL (0.2); pH Urine UA 5.5 (4.5-8.0)
[2023-05-30 14:10] LABS: Urine Volume 10mL (spun)
[2023-05-30 14:13] LABS: Bacteria Urine None Seen; Mucus Urine 2+ (Negative); RBC Urine 1-5/HPF (0-5/HPF); Squamous Epithelial Cell Urine 0-1 /HPF (0-5/HPF); WBC Urine None Seen (0-5/HPF)
[2023-05-30 14:14] LABS: Culture Indicated Urine Cult Not Indicated
== END 2023-05-30 14:57 | disposition home or self-care (01) ==
PROVIDERS: Emergency Provider Emergency Medicine; PCP Student in an Organized Health Care Education/Training Program
DX: E86.0 Dehydration (principal); R00.0 Tachycardia, unspecified
CPT/HCPCS: 80053; 81001; 81003; 81025; 83690; 85025; 87633; 96360; 96361; 99283; 99284

== ENCOUNTER → 2024-06-10 13:46 | Outpatient (CLI) | payer OTHER, SELFPAY ==
--- NOTE | 2024-06-10 13:50 | DI.US.S_ITS ---
PROCEDURE: US PELVIC COMPLETE INDICATIONS: Abnormal uterine bleeding TECHNIQUE: Real-time scanning was performed of the pelvic organs, with image documentation. Additional endovaginal scanning was necessary due to incomplete visualization of the adnexal and endometrial structures by transabdominal scanning. COMPARISON: [facility], US, US PELVIC COMPLETE, 04/10/2019, 13:02. FINDINGS: Uterus: Heterogeneous lobulated contour of the uterus predominantly anterior uterine myometrium at the fundus raises the suspicion for leiomyomatous uterus measuring up to 2.5 cm diameter versus artifact related to anti flexion. Linear echogenic intrauterine device in place in the uterus unchanged. New large large right ovarian/adnexal anechoic cyst measures up to 5.8 x 4.3 x 3.4 cm. Given the size this may predispose to right ovarian torsion although no ultrasound evidence of torsion at this time. Uterus is anteverted and normal in size at 8.4 x 4.3 x 3.3 cm. The myometrium is heterogeneous. The endometrium measures 5 mm combined thickness. Ovaries: The right ovary measures 8.0 x 4.6 x 4.2 cm, with a calculated ovarian volume of 79.6 cc. The left ovary measures 2.5 x 2.4 x 1 point cm, with a calculated ovarian volume of 4.2 cc. Less than 12 follicles can be seen in each ovary. No adnexal masses are seen. Other: No pathologic free abdominal or pelvic fluid. IMPRESSION: New large right ovarian/adnexal anechoic simple cyst as discussed above up to 5.8 cm. Follow-up suggested. Lobulated contour of the uterus possible leiomyomatous uterus as discussed above. Intrauterine device in place unchanged. We strive to produce accurate, complete, and clear reports of imaging services. To assist us in improving patient care, this report was composed using standard report templates and voice recognition software. Therefore, it may contain abnormal punctuation, insertions and/or omissions. Occasional wrong-word or sound-alike substitutions may occur. Though we review the report and make efforts to correct it, we do recommend that the report be read carefully in proper context to recognize any text inaccuracies. Dictated by: Mina Long M.D. on 06/10/2024 at 15:46 Approved by: Mina Long M.D. on 06/10/2024 at 15:53
== END ==
PROVIDERS: PCP Family Medicine; Referring Provider Family Medicine; Visit Provider Family Medicine
DX: N93.9 Abnormal uterine and vaginal bleeding, unspecified (principal); N83.291 Other ovarian cyst, right side; R10.2 Pelvic and perineal pain; Z97.5 Presence of (intrauterine) contraceptive device
CPT/HCPCS: 76830; 76856

== ENCOUNTER 2024-06-12 21:50 | Observation (INO) | payer OTHER, SELFPAY ==
[2024-06-12 22:15] VITALS: BP 110/73; PULSE 113; RESP 16; TEMP 36.5; O2SAT 100; BMI 21.3
--- NOTE | 2024-06-12 22:15 | ED.ABDPAIN ---
HPI - Abdominal Pain General Chief Complaint: Abdominal Pain Stated Complaint: pelvic px Time Seen by Provider: 06/12/24 22:06 History of Present Illness HPI narrative: Patient is a 39-year-old female sent in by teacher of the deaf/hard of hearing for presumed ovarian torsion. She has a large right cyst. There was talk of taking patient to the OR earlier in the day when she was at clinic but patient wanted to wait however pain intensified this evening. She and her went out to celebrate their anniversary admit to a couple alcoholic drinks but having intense pain. She was able to ambulate. No nausea vomiting or fever. Dr. Schneider, teacher of the deaf/hard of hearing, in ED waiting for patient to arrive. Related Data Home Medications Medication Instructions Recorded Confirmed levonorgestrel 21 mcg/24 hr (up to 1 device intrauterine CONT 12/05/17 06/12/24 8 years) 52 mg intrauterine device (Mirena) calcium carbonate (Calcium 600) 1,200 mg PO DAILY 07/15/21 06/12/24 cholecalciferol (vitamin D3) 50 50 mcg PO DAILY 07/15/21 06/12/24 mcg (2,000 unit) tablet multivitamin (Multiple Vitamins 1 tab PO DAILY 07/15/21 06/12/24 tablet) Previous Rx's Medication Instructions Recorded sumatriptan succinate 50 mg tablet See Rx Instructions PO .COMPLEX 09/04/23 #10 tabs ondansetron HCl 8 mg tablet 8 mg PO TID PRN nausea and 09/28/23 vomiting #10 tabs lorazepam 1 mg tablet 0.5 mg (1/2 x 1 mg) PO BEDTIME PRN 10/17/23 anxiety #10 tabs gabapentin 600 mg tablet See Rx Instructions PO DAILY #225 11/14/23 tabs Allergies Allergy/AdvReac Type Severity Reaction Status Date / Time buspirone AdvReac Intermediate Fatigue Verified 06/12/24 08:09 adhesive tape AdvReac Mild Rash Verified 06/12/24 08:09 hydroxyzine AdvReac Mild Headache Verified 06/12/24 08:09 lactose AdvReac Mild diarrhes, Verified 06/12/24 08:09 stomach cramping latex [LATEX] AdvReac Mild Rash Verified 06/12/24 08:09 NSAIDS (Non-Steroidal AdvReac Unknown TEARS MY Verified 06/12/24 08:09 Anti-Inflamma STOMACH UP [NSAIDS (NON-STEROIDAL ANTI-INFLAMMA] Patient History Medical History Ovarian neoplasm Abnormal pelvic ultrasound Abnormal uterine bleeding (AUB) Vitamin D deficiency Type 2 diabetes mellitus Fatty liver Acid reflux History of migraine Deviated septum Vision disorder Snoring Collapsed lung (~2013) Seasonal allergies (~2013) Post traumatic stress disorder (PTSD) (~2015) Depression (~2006) Anxiety (~2006) Chicken pox Painful menstrual periods (~1999) Ovarian cyst (~1999) Irregular menstrual cycle (~1999) Heavy menstrual period (~2013) Endometriosis (~1999) Hypothyroidism (~2013) Surgical History H/O gastric bypass (~02/15/22) H/O umbilical hernia repair History of dilatation and curettage (~2012) History of tonsillectomy (~2016) Anesthesia Ganglion cyst (~2015) History of shoulder surgery Status post delivery (~2013) Social History marital status: unmarried,living together household members: spouse occupational status: employed Smoking Status: Former smoker alcohol intake: current substance use type: does not use Smoking Status: Former smoker alcohol intake frequency: holidays/special occasions only Exam Initial Vital Signs Initial Vital Signs: Vital Signs Temperature 97.7 F 06/12/24 22:15 Pulse Rate 113 H 06/12/24 22:15 Respiratory Rate 16 06/12/24 22:15 Blood Pressure 110/73 06/12/24 22:15 Pulse Oximetry 100 06/12/24 22:15 Oxygen Delivery Method Room Air 06/12/24 22:15 GENERAL: Well-appearing, well-nourished and in no acute distress. CARDIOVASCULAR: peripheral pulses in tact, cap refill <2 sec RESPIRATORY: No respiratory distress, speaks in full sentences without difficulty [ABDOMEN: Soft, only tender right lower quadrant no guarding no rebound] EXTREMITIES: Normal range of motion, no clubbing or edema. Neurovascularly intact NEUROLOGICAL: Cranial nerves II through XII grossly intact. Normal gait and speech. SKIN: Warm, dry, no petechiae, no rashes or lesions. Course Orders Ordered: ED Orders 06/12/24 22:25 CBC Auto Diff [Complete Blood Count AUTO DIFF] Stat CMP [Comprehensive Metabolic Panel] Stat ETOH [Ethanol (ETOH)] Stat Type and Screen Stat Lactated Ringer's (Lactated Ringers) 1,000 mls @ 30 mls/hr IV CONT [place] Last Admin: 06/12/24 22:43 Dose: 30 mls/hr Documented By: AB Sodium Chloride (Normal Saline 0.9%) 1,000 mls @ 30 mls/hr IV CONT [place] Morphine Sulfate (Morphine 4 Mg/Ml Inj) 4 mg IV Q4HR PRN PRN Reason: Pain, Severe (7-10) Last Admin: 06/13/24 02:14 Dose: 4 mg Documented By: Admin: 06/12/24 22:43 Dose: 4 mg Documented By: AB Morphine Sulfate (Morphine 4 Mg/Ml Inj) 4 mg IV Q4HR PRN PRN Reason: Pain, Severe (7-10) Naloxone HCl (Naloxone 0.4 Mg/Ml Vial) 0.2 mg IV Q2MIN PRN PRN Reason: Opiate Reversal Ondansetron HCl (Ondansetron 4 Mg/2 Ml Inj) 4 mg IV Q8HR PRN PRN Reason: Nausea And Vomiting Discontinued Medications Ondansetron HCl (Ondansetron 4 Mg/2 Ml Inj) 4 mg IV NOW ONE Stop: 06/12/24 22:39 Last Admin: 06/12/24 22:43 Dose: 4 mg Documented By: Vital Signs Vital signs: Vital Signs - 8 hr 06/12/24 22:15 Temperature 97.7 F Pulse Rate 113 H Respiratory Rate 16 Blood Pressure 110/73 Pulse Oximetry 100 Oxygen Delivery Method Room Air MDM - Abdominal Pain Lab Data 06/12/24 22:25 06/12/24 22:25 MDM Narrative Medical decision making narrative: Patient 39-year-old female presenting today with intermittent pretty severe right lower quadrant pain. She had an ultrasound done on 06/10/2024 which shows large right ovarian cyst that measures 5.8 x 4.3 x 3.4 cm. Concerned that she is intermittent right ovarian torsion. Senior [employer] Applications Developer sent her air to take her to the OR. However due to her alcohol level 258 patient will be placed in observation for or tomorrow. Other blood work is overall reassuring she has no leukocytosis electrolytes are stable, however bicarb is 16 and no SHADY. Discuss with teacher of the deaf/hard of hearing about imaging but declined at this time reports ultrasound was done a couple days ago. Could still be appendicitis however patient has had intermittent his ultrasound which shows large right ovarian cyst she has no leukocytosis or fever. Patient admitted to Dr. Schneider. Discharge Plan Departure Patient Disposition: Admitted as Observation Clinical Impression: Ovarian torsion Admit Date/Time: 06/12/24 22:23 Admit Provider: Tomasa Schneider
[2024-06-12] MEDS: ONDANSETRON 4 MG/2 ML INJ IV (22:43)
[2024-06-12] MEDS: MORPHINE 4 MG/ML INJ IV (22:43)
[2024-06-12] MEDS: LACTATED RINGERS 1,000 ML 30 ML IV (22:43)
[2024-06-12 22:46] LABS: Add Manual Diff / Slide Review NO; Basophils Absolute Auto 100 /uL (0-100); Eosinophils Absolute Auto 100 /uL (0-450); Eosinophils Percent Auto 1.2 % (2-4); Hematocrit 38.3 % (36-46); Hemoglobin 12.7 g/dL (12.0-16.0); Lymphocytes Absolute Auto 2800 /uL (1100-4500); Lymphocytes Percent Auto 37.3 % (25-40); Mean Corpuscular HGB Conc 33.2 % (30-36); Mean Corpuscular Hemoglobin 30.3 PG (26-34); Mean Corpuscular Volume 91.3 fL (80-100); Monocytes Absolute Auto 500 /uL (0-900); Monocytes Percent Auto 6.7 % (3-14); Neutrophils Absolute Auto 4000 /uL (1500-7000); Neutrophils Percent Auto 53.8 % (50-75); Platelet Count 299 X10^3/uL (150-400); White Blood Cell Count 7.4 X10^3/uL (4.5-11.0)
--- NOTE | 2024-06-12 22:48 | PM.GYNHP.1 ---
History of Present Illness History of Present Illness Narrative: Tomasa Bey is a 39 year old female [id number] with LNG-IUD, known 6cm ROV who presents to ED with sudden onset of severe RLQ pain. Patient was seen as urgent add-on to clinic schedule 06/12 for further evaluation and management of same. At time of clinic presentation patient reported approx 1wk h/o intermittent severe RLQ pain which in tandem with US findings was consistent with intermittent ovarian torsion. Patient was counseled on recommendation to proceed to OR directly at time of clinic encounter however requested to defer procedure to 06/17 to allow for coordination of family/work responsibilities. Patient was consented for diagnostic laparoscopy with ovarian cystectomy, possible oophorectomy (presumed R adnexal origin, laterality to be determined by intraoperative findings), bilateral salpingectomy in setting of undesired future fertility/desired permanent surgical sterilization in tandem with hysteroscopy with D&C, IUD removal/replace due to 6mo h/o chronic AUB with suspected IUD embedment. This evening patient states that she and her were celebrating their anniversary early and were out to dinner when all hell broke loose and her pain suddenly became severe again causing her to double over. Her contacted the provider on-call and was instructed to proceed to ED for further evaluation; on-call provider contacted ED to notify of anticipated arrival with likely plan for emergent surgery tonight. On arrival to ED patient was met first in hallway and then in patient room. She states the pain is severe, 10/10, noted to be doubled over and in tears. OR team was activated immediately and en route, at which time it was disclosed that patient had ingested a moderate amount of EtOH prior to arrival with concern for acute intoxication. Patient amenable to obtaining serum PRASHANTH to confirm degree of intoxication prior to moving forward with any surgical intervention due to increased risk of intraoperative bleeding and complication. In interim patient received 4mg IV morphine and reported improvement in pain. REPLACED BY [facility] Medical History (Updated 06/12/24 @ 23:14 by La Najera DO) Ovarian neoplasm Abnormal pelvic ultrasound Abnormal uterine bleeding (AUB) Vitamin D deficiency Type 2 diabetes mellitus Fatty liver Acid reflux History of migraine Deviated septum Vision disorder Snoring Collapsed lung (~2013) Seasonal allergies (~2013) Post traumatic stress disorder (PTSD) (~2015) Depression (~2006) Anxiety (~2006) Chicken pox Painful menstrual periods (~1999) Ovarian cyst (~1999) Irregular menstrual cycle (~1999) Heavy menstrual period (~2013) Endometriosis (~1999) Hypothyroidism (~2013) Surgical History H/O gastric bypass (~02/15/22) H/O umbilical hernia repair History of dilatation and curettage (~2012) History of tonsillectomy (~2016) Anesthesia Ganglion cyst (~2015) History of shoulder surgery Status post delivery (~2013) Social History marital status: unmarried,living together household members: spouse and children occupational status: employed Smoking Status: Former smoker alcohol intake: current substance use type: does not use Meds Home Medications and Allergies Home Medications Medication Instructions Recorded Confirmed Type levonorgestrel 21 mcg/24 hr (up to 1 device intrauterine CONT 12/05/17 06/12/24 History 8 years) 52 mg intrauterine device (Mirena) calcium carbonate (Calcium 600) 1,200 mg PO DAILY 07/15/21 06/12/24 History cholecalciferol (vitamin D3) 50 50 mcg PO DAILY 07/15/21 06/12/24 History mcg (2,000 unit) tablet multivitamin (Multiple Vitamins 1 tab PO DAILY 07/15/21 06/12/24 History tablet) sumatriptan succinate 50 mg tablet See Rx Instructions PO .COMPLEX 09/04/23 06/12/24 Rx #10 tabs ondansetron HCl 8 mg tablet 8 mg PO TID PRN nausea and 09/28/23 06/12/24 Rx vomiting #10 tabs lorazepam 1 mg tablet 0.5 mg (1/2 x 1 mg) PO BEDTIME PRN 10/17/23 06/12/24 Rx anxiety #10 tabs gabapentin 600 mg tablet See Rx Instructions PO DAILY #225 11/14/23 06/12/24 Rx tabs Allergies Allergy/AdvReac Type Severity Reaction Status Date / Time buspirone AdvReac Intermediate Fatigue Verified 06/12/24 08:09 adhesive tape AdvReac Mild Rash Verified 06/12/24 08:09 hydroxyzine AdvReac Mild Headache Verified 06/12/24 08:09 lactose AdvReac Mild diarrhes, Verified 06/12/24 08:09 stomach cramping latex [LATEX] AdvReac Mild Rash Verified 06/12/24 08:09 NSAIDS (Non-Steroidal AdvReac Unknown TEARS MY Verified 06/12/24 08:09 Anti-Inflamma STOMACH UP [NSAIDS (NON-STEROIDAL ANTI-INFLAMMA] Review of Systems Review of Systems ROS: Yes All systems reviewed with the patient and are negative except as otherwise documented Exam Vital Signs (past 8 hours): - 06/12/24 22:15 Temperature 97.7 F Pulse Rate 113 H Respiratory Rate 16 Blood Pressure 110/73 Pulse Oximetry 100 Oxygen Delivery Method Room Air Oxygen Delivery Method Room Air Const General: cooperative and acute distress (improved following IV analgesia ) Nutritional Appearance: average body habitus Orientation: alert, awake and oriented x3 Limitations: altered mental status (acute intoxication ) Resp Effort & Inspection: normal respiratory effort and able to speak in complete sentences Cardio Pulses: normal peripheral pulses GI Palpation: guarding Other: deferred Skin General: no rashes or lesions noted Neuro General: patient alert, patient awake and patient oriented x3 Extrem General: normal to inspection Psych Mental Status: mental status grossly normal Judgment: limited (secondary to acute intoxication) Objective Labs 06/12/24 22:25 06/12/24 22:25 Labs: Laboratory Results - last 24 hr 06/12/24 22:25 WBC 7.4 RBC 4.20 Hgb 12.7 Hct 38.3 MCV 91.3 MCH 30.3 MCHC 33.2 RDW 13.0 Plt Count 299 Neut % (Auto) 53.8 Lymph % (Auto) 37.3 Glasscock % (Auto) 6.7 Eos % (Auto) 1.2 L Baso % (Auto) 1.0 Neut # (Auto) 4000 Lymph # (Auto) 2800 Glasscock # (Auto) 500 Eos # (Auto) 100 Baso # (Auto) 100 Assessment & Plan Assessment and plan (1) Ovarian torsion: Status: Acute (2) Abnormal uterine bleeding (AUB): Status: Acute Plan 39yo with LNG-IUD, known 6cm ovarian cyst presents with acute onset severe recurrent RLQ pain concerning for ovarian torsion Suspected ovarian torsion admit to observation, IV analgesia patient and spouse counseled on recommendation to defer surgery until AM secondary to acute EtOH intoxication with increased risk of intraoperative bleeding and complication following consultation with on-call anesthesia provider. Patient verbalizes understanding, in agreement with plan of care. We reviewed increased risk of loss of ovary function with delayed procedure, pt verbalized understanding. Patient admitted to observation, NPO except for meds, anticipate procedure in AM pending further coordination of surgical schedule/providers. Patient aware that on-call practice provider (Dr. Sheikh) will be assuming care in AM and that final procedure will be dependent upon his clinical judgement, however I anticipate that the case will be completed as originally scheduled from office earlier today (diagnostic laparoscopy, ovarian cystectomy vs oophorectomy, bilateral salpingectomy, hysteroscopy with D&C, IUD removal/replacement with new device) unless intervening clinical concerns arise. IV morphine 4mg q4h PRN severe pain hold home medications hold NSAID in setting of h/o cecile-en-Y gastric bypass, historical intolerance to medication notify on-call provider with any acute clinical changes F: NS @ 30cc/hr E: no repletions indicated N: NPO except for meds DVT ppx: SCDs while in bed Pain management: IV morphine 4mg q4h PRN, no NSAIDs Time-Based Coding :: [TOTAL MINUTES] spent with patient and on the chart (including review of chart, obtaining history, exam, reviewing outside data, placing orders, documenting exam and treatment plan, and counseling patient) on [DATE].
[2024-06-12 22:57] LABS: Alanine Aminotransferase 23 IU/L (<35); Albumin 4.9 g/dL (3.5-5.0); Albumin Globulin Ratio 1.7 (1.0-2.8); Alkaline Phosphatase 40 U/L (38-126); Aspartate Aminotransferase 29 IU/L (14-36); BUN Creatinine Ratio 10.3 (6-22); Bilirubin Total 0.7 mg/dL (0.2-1.3); Blood Urea Nitrogen 8 mg/dL (7-17); Calcium 9.2 mg/dL (8.4-10.2); Carbon Dioxide 16 mmol/L (22-32); Chloride 105 mmol/L (98-107); Estimated Glomerular Filt Rate > 60 mL/min (>60); Ethanol (ETOH) 258 mg/dL; Globulin 2.9 g/dL (1.7-4.1); Glucose 95 mg/dL (70-100); HEMOLYSIS 19 (0-50); Potassium 3.9 mmol/L (3.4-5.1); Sodium 138 mmol/L (137-145); Total Protein 7.8 g/dL (6.3-8.2)
[2024-06-13] VITALS (13 sets, daily range): BP systolic 109–147; BP diastolic 62–87; PULSE 69–111; RESP 12–18; TEMP 36–36.9; O2SAT 95–100; BMI 25.4
--- NOTE | 2024-06-13 | PATH_ITS ---
[facility] Accession Number: [id number] No. of containers..04 Tissue . 01 Material submitted: . PART A: OVARIAN - RIGHT OVARIAN CYST PART B: fallopian tube - BILATERAL FALLOPIAN TUBES PART C: endometrium - ENDOMETRIAL CURETTINGS PART D: endocervix - ENDOCERVICAL CURETTINGS . 01 Diagnosis: A. RIGHT OVARIAN CYST, CYSTECTOMY: Ovarian tissue with patchy stormal thecosis, numerous cystic follicles, and a benign corpus luteum cyst. . B. BILATERAL FALLOPIAN TUBES, SALPINGECTOMIES: Longer fallopian tube, complete cross-sections; negative for significant atypia. Tenaha fallopian tube, complete cross-sections; negative for significant atypia. Nonfimbriated segment of fallopian tube, complete cross-sections; negative for significant atypia. . C. ENDOMETRIAL CURETTINGS: Polypoid fragments of inactive endometrium; negative for endometrioid intraepithelial neoplasia or malignancy. . D. ENDOCERVICAL CURETTINGS: Endocervical tissue fragments and strips of glandular epithelium; negative for significant atypia. Fragments of endometrial polyp; negative for significant atypia. [facility] 06/20/2024 1230 Local . 01 Electronically signed: . Tiffanie Padron MD, Pathologist NPI- [id number] . 01 Gross description: . A. Received in formalin with two identifiers and ovarian cyst, are two sampson membranous soft tissue fragments consistent with fragments of cyst wall. The first is 5.1 x 2.7 x 0.3 cm with the smoother surface inked blue. The second fragment is 1.2 x 1.1 x 0.2 cm and the smoother surface is inked green. The larger fragment has three smaller embedded cysts 0.2 to 0.4 cm in greatest dimension filled with sampson serous fluid. No lesions or excrescences are identified. The specimen is submitted entirely in cassettes A1-A6. B. Received in formalin with two identifiers and bilateral fallopian tubes, are two unoriented fimbriated fallopian tubes (5.5 x 0.7 cm and 3.1 x 0.6 cm) and a nonfimbriated tubular soft tissue fragment 2.3 cm in length by 0.4 cm in diameter. All three fragments have violaceous, smooth serosa with cystic structures on the fimbriated tubes up to 0.2 cm in greatest dimension filled with cloudy serous fluid. Sectioning reveals unremarkable stellate lumen. [employer] sections to include one-half of bisected fimbriae and cross-sections are submitted as follows: B1: Longer fallopian tube. B2: Tenaha fallopian tube. B3: Nonfimbriated fragment. C. Received in formalin with two identifiers and endometrial curetting, are multiple sampson soft tissue fragments admixed with mucohemorrhagic material received in fragmented Telfa paper (tissue embedded within Telfa paper is difficult to remove) aggregating to 2.5 x 1.6 x 0.2 cm. Filtered and submitted entirely in cassette C1. D. Received in formalin with two identifiers and endocervical curettings, are multiple sampson soft tissue fragments admixed with mucohemorrhagic material received in fragmented Telfa paper (the tissue is embedded within the Telfa paper making it difficult to remove), and aggregating to 3.0 x 2.4 x 0.2 cm. Filtered and submitted entirely in cassette D1. ([id number]) /[facility] 06/15/2024 2318 Local . 01 Microscopic: . A CD10 immunostain is performed with appropriately staining control. . RESULTS: Block A5: CD10: Negative, mitigates against the presence of endometriosis. . * This test was developed and the performance characteristics were validated by [facility]. It has not been cleared or approved by the U.S. Food and Drug Administration. . 01 Pathologist provided ICD-10: N83.519, N93.9 . 01 CPT . 641155, 433843, 091632, 115256, [id number] Specimen Comment: A courtesy copy of this report has been sent to [phone] Performed at: [address] [address], [place], [place] [id number] MD Anupam Recio MD Phone: [phone]
[2024-06-13] MEDS: MORPHINE 4 MG/ML INJ IV ×4 (02:14→12:41)
--- NOTE | 2024-06-13 10:06 | PC.NURSE ---
Addendum entered by Jennifer Whalen R.N. 06/13/24 18:16: Pt escorted by staff via W/C to waiting vehicle D/C in stable condition. Addendum entered by Jennifer Whalen R.N. 06/13/24 17:59: Pt returned from OR @ 1630 in stable condition. Taking po w/o nausea. Requesting to discharge at this time SL D/C intact. Home instructions given w/understanding. Awaiting transportation Original Note: Pt C/O abdominal discomfort this morning; 09/26; notified, received additional dose of MS 4mg IVP w/ good relief. Remains NPO for surgery later this morning. IVF LR infusing @ 30cc/hr via pump into the left hand w/o incident. Call light w/in reach, pt calls appropriately for needs.
--- NOTE | 2024-06-13 13:42 | PM.PREOP ---
Pre-operative Note COVID-19 COVID-19 status: Not tested Interval Note History & Physical reviewed/Exam performed by Physician: Yes Changes to H&P: No
--- NOTE | 2024-06-13 14:04 | SUR.OPER ---
Lithotomy on padded OR bed. Snyder Pad Positioner under torso. Head on pillow, arms padded and tucked at sides. Legs secured in padded yellow fins stirrups. safety strap secured.
[2024-06-13] MEDS: CEFAZOLIN 2 GM/100 ML PREMIX 100 ML IV (14:05)
[2024-06-13] MEDS: BUPIVACAINE 0.5% W/ EPI (PF) 30 ML VIAL INJ (14:37)
--- NOTE | 2024-06-13 15:56 | P.OP_ITS ---
Operative Date/Time/Diagnoses Date of procedure: 06/13/24 Time of procedure: 13:45 Pre-op diagnosis: Abdominal pain Right ovarian cyst Intermittent right ovarian torsion (suspected diagnosis) Request for sterilization Abnormal uterine bleeding Embedded IUD Encounter for IUD removal and replacement Post-op diagnosis: same Procedure & Clinicians Procedure: Procedures Operation Date: 06/13/24 13:00 Actual Procedure Side Surgeon p Laparoscopy, Diagnostic with ovarian cystectomy s Bilateral salpingectomy MD Jack Gregory MD s Hysteroscopy with D&C Jack Sheikh MD s Intrauterine Device Insertion/Removal Jack Sheikh MD Indications: Tomasa Bey is a 39 year old female [id number] with LNG-IUD, known 6cm ROV who presents to ED with sudden onset of severe RLQ pain. Patient was seen as urgent add-on to clinic schedule 06/12 for further evaluation and management of same. A t time of clinic presentation patient reported approx 1wk h/o intermittent severe RLQ pain which in tandem with US findings was consistent with intermittent ovarian torsion. Patient was counseled on recommendation to proceed to OR directly at time of clinic encounter however requested to defer procedure to 06/17 to allow for coordination of family/work responsibilities. Patient was consented for diagnostic laparoscopy with ovarian cystectomy, possible oophorectomy (presumed R adnexal origin, laterality to be determined by intraoperative findings), bilateral salpingectomy in setting of undesired future fertility/desired permanent surgical sterilization in tandem with hysteroscopy with D&C, IUD removal/replace due to 6mo h/o chronic AUB with suspected IUD embedment. This evening patient states that she and her were celebrating their anniversary early and were out to dinner when all hell broke loose and her pain suddenly became severe again causing her to double over. Her contacted the provider on-call and was instructed to proceed to ED for further evaluation; on-call provider contacted ED to notify of anticipated arrival with likely plan for emergent surgery tonight. On arrival to ED patient was met first in hallway and then in patient room. She states the pain is severe, 10/10, noted to be doubled over and in tears. OR team was activated immediately and en route, at which time it was disclosed that patient had ingested a moderate amount of EtOH prior to arrival with concern for acute intoxication. Patient amenable to obtaining serum PRASHANTH to confirm degree of intoxication prior to moving forward with any surgical intervention due to increased risk of intraoperative bleeding and complication. In interim patient received 4mg IV morphine and reported improvement in pain. I assumed care of this patient from Dr. Schneider when she went off call on the morning of 06/13/2024. Patient evaluated, records reviewed, and she was counseled regarding alternatives, risks, benefits, and potential complications associated with diagnostic laparoscopy, possible right ovarian cystectomy, possible right oophorectomy, bilateral salpingectomy for sterilization, hysteroscopy with possible biopsies, dilation and curettage of the uterus, removal and replacement of Mirena IUD. She was counseled that bilateral salpingectomy is a procedure which will result in her permanently and irreversibly being unable to bear children without the benefit of assisted reproductive technology. In addition she was counseled that bilateral salpingectomy can fail to prevent (1- 04/999) and should such a occur it would almost certainly be ectopic in location. With full understanding of the above, a written consent was signed, executed, and witnessed. Surgeon: Jack Sheikh Anesthesia Type: General Operative Notes Findings: There is a 6 cm unilocular cyst involving the right ovary but no evidence of ongoing torsion. The cyst wall was smooth and the entire cyst was removed during the course of the surgery. There was a small hemosiderin deposit in the posterior cul-de-sac which may be consistent with a single spot of endometriosis and that was destroyed during the course of the surgery. The left ovary appears completely normal and the residual right ovary also looks completely normal with the exception of the defect from cystectomy. The endometrial cavity is normal in size and shape. The endometrium is shaggy and slightly inflamed in appearance but there were no focal lesions. The Mirena IUD which was embedded was easily removed with traction on the strings and a new Mirena IUD was placed this date. Closure Type: primary Specimen(s): endometrial curettings, left tube, right tube and other (Right ovarian cyst wall, endocervical curettings) Applied: catheter Estimated blood loss (mL): 25 Blood products transfused: none Procedure in detail: With the patient under satisfactory general anesthesia in the modified dorsal lithotomy position, the perineum, vagina, and abdomen were prepped and draped for IUD removal and laparoscopic bilateral salpingectomy. A pre-surgical safety time-out was then taken in accordance with [facility] OR protocols. The umbilicus was then infiltrated with 0.5% Marcaine with epinephrine and 2.5 cm transverse incision was made in the inferior aspect of the umbilicus caudad to previously placed mesh. The dissection was carried down to the fascia which was incised transversely with stay sutures of 0 Vicryl placed at each end of the incision. Metzenbaum scissors were use 2 anterior the peritoneal cavity which point a Raymundo cannula was placed through the incision into the abdominal cavity. Proper placement of the sleeve was confirmed with laparoscopic visualization and insufflation of the abdomen continued. A 2nd and 3rd 5 mm laparoscopic port were placed in the right and left mid quadrants after infiltration of the skin and subcutaneous tissues with 0.5% Marcaine with epinephrine. Using a 3 puncture technique, the abdomen and pelvis were visualized with the findings as noted above. The distal aspect of the left fallopian tube was then grasped with a grasping forceps and using a Power Seal device, fimbria ovarica was coagulated and divided the dissection using the Power Seal continuing across the mesosalpinx to the cornua where the base fallopian tube was coagulated and divided. The left fallopian tube was then removed through one of the ports and submitted pathologic specimen. Attention was then turned to the right adnexa with distal tube grasped with a grasping forcep. The Power Seal device was then used to coagulate fimbria ovarica and the dissection was carried across the mesosalpinx to the cornua where the fallopian tube on the right side was amputated at the cornua following coagulation proximal tube the Power Seal device. An atraumatic grasper was used to stabilize the right ovary and monopolar J-hook was used to open the ovarian capsule adjacent to the cyst. The power Seal device was then used to excise/unroof the cyst and the cyst wall was submitted as a pathologic specimen. The base of the cyst was then coagulated with monopolar cautery Pelvis was inspected and there were no abnormalities noted following bilateral salpingectomy and ovarian cystectomy. The pneumoperitoneum was then vented and the ports removed from the abdominal wall. Port incisions were then closed with 4-0 Monocryl using inverted interrupted stitches and skin glue was applied. Appropriate dressings were then applied, and attention turned to the vaginal portion of the case. A bivalve speculum was then inserted in the vagina and the IUD within the endometrial cavity was easily removed with gentle traction on the strings. The anterior lip of the cervix grasped with a single-tooth tenaculum. The cervix was sequentially dilated to 7 cm with Hegar dilators and a MyoSure hysteroscope was introduced through the cervix into the endometrial cavity. There were no focal lesions noted within the endometrial cavity and therefore the patient then underwent fractional dilation and curettage of the uterus with endometrial and endocervical specimen submitted separately. A new Mirena IUD was then inserted into the endometrial cavity, released in the usual manner, and the strings trimmed to 3 cm. The tenaculum was removed from the cervix and no bleeding was noted. Speculum was then removed from the vagina, the atient was awakened, and transferred to the PACU for a period of observation after having tolerated the procedure well. Complications: none Post-operative Condition: stable Disposition: PACU Plan for aftercare: Routine postoperative care with follow-up planned for 2 weeks after surgery.
[2024-06-13] MEDS: fentaNYL 100 MCG/2 ML INJ IV (15:58)
[2024-06-13] MEDS: ONDANSETRON 4 MG/2 ML INJ IV (16:00)
[2024-06-13] MEDS: OXYCODONE/ACETAMINOPHEN 5/325 TABLET 1 TAB PO (16:14)
== END 2024-06-13 18:17 | disposition home or self-care (01) ==
LOC: ED 22:06 → AC 22:29
PROVIDERS: Obstetrics & Gynecology; Admitting Provider Obstetrics & Gynecology; Emergency Provider Emergency Medicine; PCP Family Medicine; Referring Provider Emergency Medicine; Visit Provider Obstetrics & Gynecology
PROC: (CPT 49320; principal; 2024-06-13 13:00)
PROC: 0UDB8ZZ Extraction of Endometrium, Via Natural or Artificial Opening Endoscopic (ICD-10-PCS; CPT 58558; 2024-06-13 13:00)
DX: Z87.891 Personal history of nicotine dependence (principal); Z30.433 Encounter for removal and reinsertion of intrauterine contraceptive device; N83.201 Unspecified ovarian cyst, right side
CPT/HCPCS: 58661; 58562; 58300; 36415; 80053; 80320; 85025; 86850; 86900; 86901; 96374; 96375; 96376; 99283; 99284; G0378; C1713; J0690; J1100; J2250; J2270; J2405; J2704; J3010; J7298

== ENCOUNTER → 2024-09-17 16:35 | Outpatient (CLI) | payer OTHER, SELFPAY ==
[2024-06-13 02:15] VITALS: BMI 25.4
--- NOTE | 2024-09-17 16:37 | DI.US.S_ITS ---
PROCEDURE: US PELVIC COMPLETE INDICATIONS: ABNORMAL UTERINE BLEEDING TECHNIQUE: Real-time scanning was performed of the pelvic organs, with image documentation. Additional endovaginal scanning was necessary due to incomplete visualization of the adnexal and endometrial structures by transabdominal scanning. COMPARISON: [facility], , US PELVIC COMPLETE, 06/10/2024, 14:05. FINDINGS: Uterus: Uterus is anteverted and normal in size at 9.2 x 3.4 x 3.8 cm. The myometrium is heterogeneous with increased myometrial echogenicity anterior and posterior to the endometrium, possibly representing adenomyosis. The endometrium measures 3.4 mm combined thickness. Intrauterine device appears in appropriate position. Ovaries: The right ovary measures 3.3 x 2.1 x 2.6 cm, with a calculated ovarian volume of 9.3 cc. Right ovarian simple cyst versus dominant follicle measuring 1.9 cm. The left ovary measures 2.2 x 1.2 x 3.1 cm, with a calculated ovarian volume of 4.2 cc. The ovaries have a normal sonographic appearance. Less than 12 follicles can be seen in each ovary. No adnexal masses are seen. Other: No pathologic free abdominal or pelvic fluid. IMPRESSION: Endometrium is normal in thickness. Heterogeneous myometrium with increased echogenicity adjacent to the endometrium, findings may represent adenomyosis. Ovaries are normal in appearance. Intrauterine device appears in appropriate position. We strive to produce accurate, complete, and clear reports of imaging services. To assist us in improving patient care, this report was composed using standard report templates and voice recognition software. Therefore, it may contain abnormal punctuation, insertions and/or omissions. Occasional wrong-word or sound-alike substitutions may occur. Though we review the report and make efforts to correct it, we do recommend that the report be read carefully in proper context to recognize any text inaccuracies. Dictated by: Alexy Persaud M.D. on 09/18/2024 at 8:45 Approved by: Alexy Persaud M.D. on 09/18/2024 at 8:48
== END ==
LOC: US 16:36
PROVIDERS: PCP Family Medicine; Referring Provider Family Medicine; Visit Provider Family Medicine
DX: N93.9 Abnormal uterine and vaginal bleeding, unspecified (principal); Z97.5 Presence of (intrauterine) contraceptive device
CPT/HCPCS: 76830; 76856

== ENCOUNTER 2024-11-14 08:35 | Day surgery (SDC) | payer OTHER, SELFPAY ==
[2024-06-13 02:15] VITALS: BMI 25.4
[2024-11-08 09:45] VITALS: BMI 26.8
[2024-11-14] VITALS (14 sets, daily range): BP systolic 87–139; BP diastolic 52–90; PULSE 16–95; RESP 11–95; TEMP 35.9–36.9; O2SAT 93–99; BMI 25.4; BMI 26.6
--- NOTE | 2024-11-14 | PATH_ITS ---
[facility] Accession Number: [id number] No. of containers..01 Tissue . 01 Material submitted: . uterus - UTERUS AND CERVIX . 01 Diagnosis: A. UTERUS AND CERVIX, VAGINAL HYSTERECTOMY (WEIGHT 90 GRAMS): Cervix with no significant histomorphologic abnormality. Endocervix with prominent Nabothian gland cysts and otherwise no significant histomorphologic abnormality. Weakly proliferative endometrium with a T-shaped IUD with attached 1.5 cm wire; negative for endometrioid intraepithelial neoplasia or malignancy. Myometrium with no significant histomorphologic abnormality. Uterine serosa with no significant histomorphologic abnormality. [facility] 11/26/2024 1527 Local . 01 Electronically signed: . Tiffanie Padron MD, Pathologist NPI- [id number] . 01 Gross description: . Received in formalin labeled with two patient identifiers and uterus and cervix, and consists of a 8.5 x 4.5 x 3.6 cm uterus with attached cervix. The serosal surface is sampson-pink, smooth, glistening, and otherwise unremarkable. There is a 3.5 x 2.5 x 1.3 cm attached cervix. The ectocervix is white, smooth, glistening, and otherwise unremarkable. There is a 1.3 cm patent slit like os. The endocervical canal is sampson, trabeculated, and free of exophytic lesions. There is a 1.2 cm in greatest dimension, unilocular, serous fluid filled endocervical cyst. The myometrium is sampson, white, slightly trabeculated, and measures up to 1.4 cm in thickness. There is a 2.5 x 1.5 cm triangular endometrial lining which is surfaced by a white to sampson, finely granular, smooth, glistening, unremarkable endometrial lining. There are no masses or exophytic lesions of the endometrium. There is, however, a 3.1 x 2.0 x 0.2 cm white, T-shaped, intrauterine device with an attached 1.5 cm wire. The IUD is inserted and in its normal position. Further examining of the interior endocervical canal demonstrates a 1.6 x 1.5 cm slightly granular, white, ill-defined area. . Historical Archeologist sections are submitted as follows: A1: Posterior cervix. A2-A3: Anterior cervix to include granular endocervical canal area. A4: Full thickness endomyometrium posterior. A5: Full thickness endomyometrium anterior. ([id number]) /CODEY 11/19/2024 1038 Local . 01 Pathologist provided ICD-10: N80.03, N94.6, N39.3 . 01 CPT . 153671 Specimen Comment: A courtesy copy of this report has been sent to [phone] Performed at: [address] [address], [place], [place] [id number] MD Anupam Recio MD Phone: [phone]
[2024-11-14] MEDS: SCOPOLAMINE 1 PATCH TOP (09:27)
[2024-11-14] MEDS: ONDANSETRON 4 MG/2 ML INJ IV ×2 (09:27→12:43)
[2024-11-14] MEDS: LACTATED RINGERS 1,000 ML 42 ML IV ×3 (09:27→13:13)
[2024-11-14] MEDS: ACETAMINOPHEN 325 MG TABLET 975 MG PO (09:27)
[2024-11-14] MEDS: FAMOTIDINE 20 MG/2 ML VIAL IV (09:27)
[2024-11-14] MEDS: GABAPENTIN 300 MG CAPSULE PO (09:28)
--- NOTE | 2024-11-14 10:02 | PM.PREOP ---
Pre-operative Note COVID-19 COVID-19 status: Not tested Interval Note History & Physical reviewed/Exam performed by Physician: Yes Changes to H&P: No
--- NOTE | 2024-11-14 10:57 | SUR.OPER ---
Lithotomy on padded OR bed. [place] Pad Positioner under torso. Head on pillow, arms out on armboard <90 degrees. Legs secured in padded yellow fins stirrups. Strap across abdomen
--- NOTE | 2024-11-14 12:27 | P.OP_ITS ---
Operative Date/Time/Diagnoses Date of procedure: 11/14/24 Time of procedure: 10:40 Pre-op diagnosis: Abnormal uterine bleeding Stress urinary incontinence Post-op diagnosis: same Procedure & Clinicians Procedure: Procedures Operation Date: 11/14/24 10:15 Actual Procedure Side Surgeon p Transvaginal Hysterectomy Not Applicable Jack Sheikh MD s Mid Urethral sling, cystoscopy Not Applicable Jack Sheikh MD Indications: Tomasa Bey is a 39 year old female [id number], LMP 10/27/2024, who has been experiencing progressively severe abnormal uterine bleeding with severe dysmenorrhea despite replacement of Mirena IUD in May 2024. At that time she had an embedded IUD removed with a new IUD placed, removal of a 6 cm ovarian cyst as well as bilateral salpingectomy. Unfortunately her bleeding has continued and is associated with severe cramping. Ultrasound imaging is most consistent with adenomyosis and after considering all options, the patient has decided to move forward with transvaginal hysterectomy. Laparoscopy performed in May 2024 showed only a single spot peritoneal endometriosis but no other abnormalities in the pelvis which would preclude transvaginal hysterectomy. In addition patient has noted progressively severe stress urinary incontinence through the years and has significant UVJ hypermobility on prior pelvic exam. She presents today for her scheduled surgery. Surgeon: Jack Sheikh Art Objects Supervisor: Jennifer Vaughn Anesthesia Type: General Operative Notes Findings: Essentially normal size and shape uterus. Normal ovaries visualized bilaterally. Bladder mucosa is unremarkable with vigorous jets of urine coming from each ureteral meatus. No evidence of bladder injury. Closure Type: primary Specimen(s): uterus Applied: catheter Estimated blood loss (mL): 100 Blood products transfused: none Procedure in detail: With the patient under satisfactory general endotracheal anesthesia in the modified dorsal lithotomy position, the perineum, vagina, and lower abdomen were prepped and draped in the usual manner for vaginal hysterectomy. A pre-surgical safety time-out was then taken in accordance with [facility] Main OR protocols. A weighted speculum was placed in the vagina and the cervix visualized. The cervix was then grasped with 2 single-tooth tenaculum so and the portio was infiltrated with 0.5% Marcaine with epinephrine circu mferentially. A circumferential incision was then made with monopolar cutting current and the bladder was advanced anteriorly with a Ray-David using blunt dissection. Attention was then turned to the posterior cul-de-sac and the peritoneum was entered using Metzenbaum scissors. The posterior cul-de-sac mucosa was then tagged with the 0 Vicryl stitch. Simon Tristen clamps were then used take both the left and the right uterosacral ligament and each ligament was transfixed with 0 Vicryl in a transfixing suture. Entry into the anterior cul-de-sac was then performed without difficulty and a Simon retractor was placed into the anterior cul-de-sac. The handheld LigaSure device was then used to secure pedicle sequentially on both sides of the uterus all the way up to the cornua which was cross clamped with the LigaSure device, coagulated, and divided. Inspection of the pedicles revealed a slight amount of oozing from the right side and that was secured with a single kfrxjc-ge-qcnqf of 0 Vicryl. Once pedicle hemostasis was assured, the vaginal cuff was closed with a series of 0 Vicryl rhqrzm-pf-htvjx stitches with careful incorporation of the uterosacral ligament pedicle into the vaginal cuff closure itself. Cuff hemostasis was excellent. A short weighted speculum was inserted in the vagina and the anterior vaginal wall inspected. A Morrison catheter was inserted in the bladder and the mid urethra was identified by palpation of the Morrison bulb. Once the mid urethra had been identified, 2 Allis clamps were placed and the area of incision infiltrated with 0.25% Marcaine with epinephrine. A 2 cm longitudinal incision of the vaginal mucosa overlying the mid urethra was then made and using Metzenbaum scissors the dissection was carried lateral on both sides so as to be able to safely introduce the retropubic tension-free vaginal tape. The TVT needle was placed 1st on the right side followed by placement of a left up through the suprapubic skin. The needle tips were brought out through the skin and remained in place while the Morrison catheter was removed and cystoscopy performed with findings as noted above. The TVT needles were then brought up through the suprapubic incisions and removed with suture scissors. The mid urethral sling was then appropriately positioned under the mid urethra and the plastic sleeves removed from the TVT once it was in correct position. The redundant portion TVT material was then excised at the skin line of the suprapubic incisions. Correct positioning of the DVT was then confirmed and the vaginal incision closed with 3-0 chromic in a running locking stitch. Pressure was maintained on the retropubic tissues for 5 minutes so as to reduce the risk subsequent bleeding or bruising. The suprapubic incisions were then closed with skin glue and inappropriate dressing was applied. Patient was then awakened from anesthesia and transferred to the PACU for a period of observation and recovery after having tolerated procedure well. Complications: none Post-operative Condition: stable Disposition: PACU Plan for aftercare: Routine postoperative care with follow-up planned for 2 weeks after surgery.
--- NOTE | 2024-11-14 13:11 | SUR.PHASEI ---
Morrison catheter removed without difficulty after deflating balloon. Tolerated well.
[2024-11-14] MEDS: LACTATED RINGERS 1,000 ML 100 ML IV (14:05)
--- NOTE | 2024-11-14 16:15 | PM.DS.IH.1 ---
History of Present Illness History of Present Illness Date Patient Seen: 11/14/24 Time Patient Seen: 16:15 Chief complaint: Menorrhagia, Stress Urinary Incontinence Narrative: Tomasa Bey is a 39 year old female [id number], LMP 10/27/2024, who has been experiencing progressively severe abnormal uterine bleeding with severe dysmenorrhea despite replacement of Mirena IUD in May 2024. At that time she had an embedded IUD removed with a new IUD placed, removal of a 6 cm ovarian cyst as well as bilateral salpingectomy. Unfortunately her bleeding has continued and is associated with severe cramping. Ultrasound imaging is most consistent with adenomyosis and after considering all options, the patient has decided to move forward with transvaginal hysterectomy. Laparoscopy performed in May 2024 showed only a single spot peritoneal endometriosis but no other abnormalities in the pelvis which would preclude transvaginal hysterectomy. In addition patient has noted progressively severe stress urinary incontinence through the years and has significant UVJ hypermobility on prior pelvic exam. She presents today for her scheduled surgery. Discharge Providers Provider Date of admission: 11/14/2024 Discharge Date: 11/14/24 Primary care physician: Nereida Swain DO Discharge provider: Jack Sheikh MD Summary Hospital Course Discharge Diagnosis: Perimenopausal Menorrhagia Stress Urinary Incontinence s/p TVH w/ midurethral sling placement Hospital Course: On 11/14/2024, the patient was admitted and underwent an uneventful transvaginal hysterectomy with mid urethral sling placement and cystoscopy. Full details of the procedure well summarized on my operative note of that date. Following surgery the patient has done exceptionally well in voided 600 cc without difficulty. She is ambulating independently, tolerating regular diet, and her pain is well-controlled with oral pain medications. She will be discharged at this time to home in an afebrile normotensive condition after counseling regarding precautionary symptoms, limitations of activity, medications, and plans for follow-up which will be in 2 weeks after surgery. Medications at discharge will include oxycodone which she already has a home as well as Cipro 500 mg p.o. b.i.d. x5 days for UTI prophylaxis. Status at Discharge Cognitive/behavioral status at discharge: oriented Functional status at discharge: independent ambulation Overall status at discharge: patient is progressing back to baseline Time Spent with Patient Time spent: Less than 30 minutes Exam Vital Signs (past 8 hours): - 11/14/24 09:14 11/14/24 12:17 11/14/24 12:20 Temperature 98.0 F 98.5 F Pulse Rate 95 H 57 L 66 Respiratory Rate 20 11 L 14 Blood Pressure 139/90 87/54 L 87/54 L Pulse Oximetry 99 95 93 Oxygen Delivery Method Room Air Room Air Room Air Oxygen Flow Rate 11/14/24 12:26 11/14/24 12:31 11/14/24 12:36 Temperature Pulse Rate 66 64 16 L Respiratory Rate 16 13 95 H Blood Pressure 92/52 L 104/62 112/67 Pulse Oximetry 96 94 Oxygen Delivery Method Room Air Room Air Room Air Oxygen Flow Rate 11/14/24 12:45 11/14/24 12:51 11/14/24 12:56 Temperature Pulse Rate 70 64 65 Respiratory Rate 13 12 13 Blood Pressure 119/74 112/71 112/74 Pulse Oximetry 96 97 97 Oxygen Delivery Method Room Air Room Air Room Air Oxygen Flow Rate 11/14/24 13:05 11/14/24 13:15 11/14/24 13:25 Temperature Pulse Rate 70 64 60 Respiratory Rate 16 16 16 Blood Pressure 120/74 109/73 113/54 L Pulse Oximetry 98 98 97 Oxygen Delivery Method Room Air Room Air Nasal Cannula Oxygen Flow Rate 11/14/24 13:31 11/14/24 13:53 Temperature 96.7 F L Pulse Rate 70 61 Respiratory Rate 16 16 Blood Pressure 116/59 L 106/61 Pulse Oximetry 98 98 Oxygen Delivery Method Room Air Oxygen Flow Rate 0 Oxygen Delivery Method Room Air Oxygen Flow Rate 0 Const General: cooperative and comfortable Nutritional Appearance: average body habitus Orientation: alert and oriented x3 HENMT Head: normal to inspection, atraumatic and abrasion Ears: hearing grossly normal bilaterally Face and sinus: face symmetric Eyes General: appearance normal, both eyes and all related structures Conjunctivae: conjunctivae normal Sclera: sclerae normal EOM: EOM intact bilaterally Neck Neck: normal visual inspection Resp Effort & Inspection: normal respiratory effort and able to speak in complete sentences Auscultation: clear to auscultation bilaterally Cardio Rate: regular rate Rhythm: regular rhythm Heart Sounds: S1 normal, S2 normal and no murmurs GI Inspection: normal to inspection Palpation: soft, no hepatosplenomegaly and tender (Mild, diffuse postsurgical tenderness) External Female Exam: other (No significant bleeding noted) Extrem General: no calf tenderness Psych Appearance: grossly normal Mental Status: mental status grossly normal Speech and Movement: speech and movement normal Mood: congruent mood Affect: normal affect Attitude: cooperative Thought Process: normal Thought Content: normal Judgment: judgment good [facility] Medical History (Updated 12/25/24 @ 08:25 by Jack Sheikh MD) Abnormal uterine bleeding (AUB) Vitamin D deficiency Type 2 diabetes mellitus Fatty liver Acid reflux History of migraine Deviated septum Vision disorder Snoring Collapsed lung (~2013) Seasonal allergies (~2013) Post traumatic stress disorder (PTSD) (~2015) Depression (~2006) Anxiety (~2006) Chicken pox Painful menstrual periods (~1999) Ovarian cyst (~1999) Irregular menstrual cycle (~1999) Heavy menstrual period (~2013) Endometriosis (~1999) Hypothyroidism (~2013) Surgical History (Updated 12/25/24 @ 08:25 by Jack Sheikh MD) History of hysterectomy for benign disease H/O gastric bypass (~02/15/22) H/O umbilical hernia repair History of dilatation and curettage (~2012) History of tonsillectomy (~2016) Anesthesia Ganglion cyst (~2015) History of shoulder surgery Status post delivery (~2013) Social History marital status: unmarried,living together household members: spouse and children occupational status: employed Smoking Status: Former smoker alcohol intake: current substance use type: does not use Discharge Assessment & Plan Assessment and Plan Assessment: Perimenopausal Menorrhagia Stress Urinary Incontinence s/p TVH w/ midurethral sling placement Plan of Treatment: Routine post-op care w/ follow-up visit in 2 weeks or as needed Discharge Plan Discharge Plan Patient Disposition: Home Provider Discharge Comment: Please review the written instructions you received when you were discharged from the hospital. Your follow-up appointment is scheduled for 2 weeks after surgery and I look forward to seeing you then. If however in the meanwhile you have any issues, concerns, or questions, please contact me either through the office phone at [phone], or via the patient portal. Post-Operative Instructions for mid-urethral sling Surgical Site: Blood spotting from the vagina is expected and not cause for alarm. All stitches will dissolve on their own. You may apply ice packs to the vaginal/pubic area as needed for comfort for the first two days. You can shower approximately 48 hours after your surgery but avoid scrubbing the surgical site. Do not submerge underwater for 6 weeks (no bathtub or swimming pool). Diet and Activity: You may return to your normal diet and light activity, as tolerated, after surgery. Avoid driving while on narcotic pain medications. Please avoid any heavy lifting more than 10 lbs or strenuous physical activities altogether for 4 weeks and then ease back into your regular activity. Avoid vaginal intercourse or penetration for 6 weeks. Medications: You received a prescription for a narcotic pain pill to use in addition to extra strength Tylenol (acetaminophen). Narcotics can cause constipation so use pkqw-fiv-clqaydt stool softeners as needed. Please avoid any Aspirin, Advil, Motrin, Aleve, ibuprofen, or any other blood thinners after the procedure for at least two days. Problems you should report: Fevers > 101. Any pain not controlled by pain medication provided. Uncontrolled bleeding from the incision. Inability to urinate. Any concerns or problems, please contact us at anytime. Discharge orders & Medications Discharge Orders: Discharge (Order); Ordered 11/14/24 Ordered By: Jack Sheikh Prescriptions: Continued cholecalciferol (vitamin D3) 50 mcg (2,000 unit) tablet 50 mcg PO DAILY sumatriptan succinate 50 mg tablet See Rx Instructions PO .COMPLEX Qty: 10 3RF Rx Instructions: take 1 tab at onset of headache; if no relief may repeat 1 tab after at least 2 hrs; max = 4 tabs/24 hr PO ondansetron HCl 8 mg tablet 8 mg PO TID PRN (Reason: nausea and vomiting) Qty: 10 0RF lorazepam 1 mg tablet 0.5 mg PO BEDTIME PRN (Reason: anxiety) Qty: 10 0RF gabapentin 600 mg tablet See Rx Instructions PO DAILY Qty: 225 6RF Rx Instructions: 1/2 tab QD PRN and 1-2 tabs QHS for sleep oxycodone 5 mg tablet 5 mg PO Q4-6H PRN (Reason: pain) Qty: 10 0RF cyclobenzaprine 5 mg tablet 5 mg PO 3XD PRN (Reason: pain ) Discontinued levonorgestrel [Mirena] 20 mcg/24 hr (5 years) intrauterine device 1 device Intrauterine CONT Patient Comments: Due out 10/2022 No Action oxycodone 5 mg tablet 5 mg PO Q4-6H PRN (Reason: pain) Qty: 10 0RF Medication counseling provided by Pharmacist: No Follow up/Referrals: Nereida Swain DO [Primary Care Provider, Family Practice] Jack Sheikh MD [Physician, CAREER RESOURCE SPECIALIST] Diet/Activity/Treatments Diet: Diet as Tolerated Activity: As tolerated Other treatments: Xorz-ovh-rzgjtri Tylenol may be used for additional pain relief. Jypa-eel-yuoykax stool softeners and/or MiraLax may be used as needed for constipation. Skin/Wound/Dressing Care Report to your healthcare provider any signs of infection, such as:: chills, fever, increased pain, unusual drainage and unusual redness Dressing: N/A Visit Report/Discharge Packet Instructions: DI for Vaginal Hysterectomy Stand Alone Forms: Patient Portal/API, Surgery Discharge Print Language: Kiswahili Discharge Data Primary Care Provider: Nereida Swain Attending Provider: Jack Sheikh Quality VTE Deep Vein Thrombosis/Pulmonary Embolism Present on Admission: No IH PROFEE Charge Codes Discharge inpatient/observation: [id number]
--- NOTE | 2024-11-14 17:18 | PC.NURSE ---
Pt arrived to floor @ 1350 Denies any discomfort States she is planning on D/C this evening. Taking po w/o incidence. Independent in room. Pt has voided Dr Sheikh here to see @ 1600 D/C orders received SL D/C intact. Home instructions given Pt escorted by staff Via W/C to waiting vehicle D/C in stable post op status
== END 2024-11-14 17:01 | disposition home or self-care (01) ==
LOC: OR 08:35 → AC 08:36
PROVIDERS: PCP Family Medicine; Referring Provider Family Medicine; Visit Provider Obstetrics & Gynecology
PROC: (CPT 58260; principal; 2024-11-14 10:15)
PROC: 0TSD0ZZ Reposition Urethra, Open Approach (ICD-10-PCS; CPT 58260; 2024-11-14 10:15)
DX: N80.03 Adenomyosis of the uterus (principal); N94.6 Dysmenorrhea, unspecified; N39.3 Stress incontinence (female) (male); Z87.891 Personal history of nicotine dependence; Z90.79 Acquired absence of other genital organ(s); N88.8 Other specified noninflammatory disorders of cervix uteri
CPT/HCPCS: 58260; 57288; C1771; J0689; J1100; J1171; J2250; J2405; J2704; J3010